=== PATIENT | male | born 1935 | race Two or more races ===

== ENCOUNTER 2017-11-24 15:20 | Inpatient (IN) | payer MEDICARE, MEDICAID ==
[~2017-11-24] VITALS: Ht 175.3 cm; Wt 82.6 kg
[~2017-11-24 15:20] MED LIST: AMLO5TAB4 PO; ATOR10TA PO; BUPR100T4 PO; CARV6.252 PO; DONE10TA44 PO; DONE5TAB7 PO; DULO20CA PO; HYDR12.5 PO; LAMO25TA5 PO; PANT40TA2 PO; PRAV20TA PO; RIVA10TA PO; SPIR25TA PO; TAMS-12 PO; TRAM50TA2 PO; TRAZ-214 PO
[2017-11-24] MEDS ORDERED: PANT40TA4 PO (16:12)
[2017-11-24] MEDS ORDERED: MELA3TAB PO (16:12)
[2017-11-24] MEDS ORDERED: SENN-167 PO (16:12)
[2017-11-24] MEDS ORDERED: HYDR-548 PO (16:12)
[2017-11-24] MEDS ORDERED: RIVA10TA PO (16:12)
[2017-11-24] MEDS ORDERED: DIGO125T PO (16:12)
[2017-11-24] MEDS ORDERED: PRED10TA PO (16:12)
[2017-11-24] MEDS ORDERED: ACET-868 PO (16:12)
[2017-11-24] MEDS ORDERED: METO25TA3 PO (16:12)
[2017-11-24] MEDS ORDERED: LISI2.5T2 PO (16:12)
[2017-11-24] MEDS ORDERED: FURO-145 PO (16:12)
[2017-11-24] MEDS ORDERED: MORP15TA PO (16:12)
[2017-11-24 16:13] LABS: BASOPHILS % (AUTO) 0.2 % (0.0-2.0); EOSINOPHILS % (AUTO) 0.3 % (0.0-6.0); HEMATOCRIT 29 % (39-51); HEMOGLOBIN 9.8 g/dL (13.5-17.5); LYMPHOCYTES # (AUTO) 0.4 /CMM (0.8-4.8); LYMPHOCYTES % (AUTO) 6.7 % (20.0-44.0); MEAN CORPUSCULAR HGB CONC 33 g/dl (31.0-36.0); MEAN CORPUSCULAR VOLUME 80 fL (80-96); MONOCYTES # (AUTO) 0.5 /CMM (0.1-1.30); MONOCYTES % (AUTO) 7.4 % (2.0-12.0); NEUTROPHILS # (AUTO) 5.5 /CMM (1.8-8.9); NEUTROPHILS % (AUTO) 85.4 % (43.0-81.0); PLATELET COUNT (AUTO) 183 /CMM (150-450); RDW COEFFICIENT OF VARIATION 17.9 (11.5-15.0); RED BLOOD CELL COUNT(AUTO) 3.65 MIL/uL (4.5-6.0); WHITE BLOOD COUNT (AUTO) 6.4 K/uL (4.3-11.0)
[2017-11-24 16:26] LABS: INR 1.06 (0.85-1.15)
[2017-11-24 16:31] LABS: TROPONIN I 0.022 ng/mL (0.00-0.056)
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
[2017-11-24 16:46] LABS: ALANINE AMINOTRANSFERASE 17 U/L (12-78); ALBUMIN 2.9 g/dL (3.4-5.0); ALKALINE PHOSPHATASE 62 U/L (46-116); ASPARTATE AMINOTRANSFERASE 17 U/L (15-37); B-TYPE NATRIURETIC PEPTIDE 3062 PG/ML (0-125); BILIRUBIN,DIRECT 0.2 mg/dL (0.0-0.2); BILIRUBIN,TOTAL 0.7 mg/dL (0.2-1.0); CALCIUM, SERUM 8.9 mg/dL (8.5-10.1); CARBON DIOXIDE 27 mmol/L (21-32); CHLORIDE 103 mmol/L (98-107); CREATININE 1.1 mg/dL (0.6-1.3); GLUCOSE 115 mg/dL (74-106); POTASSIUM 4.9 mmol/L (3.5-5.1); SODIUM SERUM 136 mmol/L (136-145); TOTAL PROTEIN, SERUM 7.1 g/dL (6.4-8.2); UREA NITROGEN, BLOOD 32 mg/dL (7-18)
--- NOTE | 2017-11-24 17:16 | NUR ---
CHARLOTTE WAS PAGED FOR EVAL
[2017-11-24] MEDS ORDERED: ACETAMINOPHEN 325 MG TABLET PO PRN ×2 (18:30→20:30)
--- NOTE | 2017-11-24 19:40 | NUR ---
INFORMED DR. WHITE AND PSYCH EVAL UNABLE TO COLLECTED UA AT THIS TIME. PER OKAY NOT TO COLLECTED AT THIS TIME.
--- NOTE | 2017-11-24 19:45 | NUR ---
REPORT GIVEN TO NEVIN PENG FOR [facility] 216-1,
--- NOTE | 2017-11-24 19:56 | NUR ---
PT TRANSFERRED VIA W/C TO [facility].
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
[2017-11-24] MEDS ORDERED: MAGNESIUM HYDROXIDE 30 ML UDC PO PRN (20:30)
[2017-11-24] MEDS ORDERED: ZOLPIDEM TARTRATE 5 MG TABLET PO PRN (20:30)
[2017-11-24] MEDS ORDERED: MAG HYDROX/AL HYDROX/SIMETH 30 ML UDC PO PRN (20:30)
[2017-11-24] MEDS ORDERED: Medication Not On Formulary EA (Melatonin 3 MG) PO SCH (22:00)
[2017-11-24] MEDS: ATORVASTATIN 10 MG TABLET PO SCH (22:09)
[2017-11-24] MEDS: SENNOSIDES 8.6 MG TABLET PO SCH (22:09)
[2017-11-24] MEDS: MORPHINE SULFATE IR 15 MG TABLET PO SCH (22:09)
[2017-11-24] MEDS: TAMSULOSIN 0.4 MG CAP.SR.24H PO SCH (22:09)
[2017-11-24 23:38] VITALS: BP 112/64
--- NOTE | 2017-11-25 06:33 | NUR ---
PAGED DR. ESPINOZA FOR LAB RESULTS. BLOOD CULTURE GRAM POSITIVE COCCI IN CHAINS SEEN ON GRAM STAIN. AWAITING FOR CALLBACK. WILL ENDORSE TO NEXT SHIFT NURSE FOR FOLLOW UP.
[2017-11-25 07:16] LABS: BASOPHILS % (AUTO) 0.7 % (0.0-2.0); EOSINOPHILS % (AUTO) 1.9 % (0.0-6.0); HEMATOCRIT 30 % (39-51); HEMOGLOBIN 9.8 g/dL (13.5-17.5); LYMPHOCYTES # (AUTO) 0.9 /CMM (0.8-4.8); LYMPHOCYTES % (AUTO) 14.7 % (20.0-44.0); MEAN CORPUSCULAR HGB CONC 33 g/dl (31.0-36.0); MEAN CORPUSCULAR VOLUME 84 fL (80-96); MONOCYTES # (AUTO) 0.8 /CMM (0.1-1.30); MONOCYTES % (AUTO) 12.7 % (2.0-12.0); NEUTROPHILS # (AUTO) 4.3 /CMM (1.8-8.9); PLATELET COUNT (AUTO) 185 /CMM (150-450); RDW COEFFICIENT OF VARIATION 19.2 (11.5-15.0); RED BLOOD CELL COUNT(AUTO) 3.58 MIL/uL (4.5-6.0); WHITE BLOOD COUNT (AUTO) 6.1 K/uL (4.3-11.0)
[2017-11-25 07:41] LABS: ALANINE AMINOTRANSFERASE 18 U/L (12-78); ALBUMIN 2.7 g/dL (3.4-5.0); ALKALINE PHOSPHATASE 54 U/L (46-116); ASPARTATE AMINOTRANSFERASE 18 U/L (15-37); BILIRUBIN,TOTAL 0.7 mg/dL (0.2-1.0); CALCIUM, SERUM 8.4 mg/dL (8.5-10.1); CARBON DIOXIDE 25 mmol/L (21-32); CHLORIDE 106 mmol/L (98-107); CREATININE 1.1 mg/dL (0.6-1.3); GLUCOSE 97 mg/dL (74-106); POTASSIUM 3.7 mmol/L (3.5-5.1); SODIUM SERUM 141 mmol/L (136-145); TOTAL PROTEIN, SERUM 6.7 g/dL (6.4-8.2); UREA NITROGEN, BLOOD 28 mg/dL (7-18)
[2017-11-25 07:56] LABS: CHOLESTEROL 133 mg/dL (<200); HDL CHOLESTEROL 48 mg/dL (40-60); LDL 76 mg/dL (0-99); TRIGLYCERIDES 64 mg/dL (30-150)
[2017-11-25 08:00] VITALS: BP 103/52
--- NOTE | 2017-11-25 08:19 | NUR ---
MS RN NOTES: BLOOD CX F/U DR. COX MADE AWARE OF BLOOD CX RESULTS BY CHARGE NURSE. PER MD "I WILL TAKE A LOOK AT IT". NO NEW ORDERS GIVEN AT THIS TIME. VITALS STABLE. PT DENIES ANY FEVER OR CHILLS. WILL CONTINUE TO MONITOR
[2017-11-25] MEDS: PANTOPRAZOLE 40 MG TABLET.DR PO SCH (08:28)
[2017-11-25] MEDS: predniSONE 10 MG TABLET PO SCH (08:28)
[2017-11-25] MEDS: METOPROLOL SUCCINATE 25 MG TAB.SR.24H PO SCH (08:29)
[2017-11-25] MEDS: FUROSEMIDE 20 MG TABLET PO SCH ×2 (08:29→15:49)
[2017-11-25] MEDS: LISINOPRIL (5MG) 5 MG TABLET PO SCH (08:29)
[2017-11-25] MEDS: MORPHINE SULFATE IR 15 MG TABLET PO SCH ×2 (08:55→21:09)
[2017-11-25] MEDS ORDERED: DIGOXIN 0.125 MG TABLET PO SCH (09:00)
[2017-11-25] MEDS: DIGOXIN 0.125 MG TABLET PO SCH (12:33)
[2017-11-25] MEDS: LamoTRIgine 25 MG TABLET PO SCH ×2 (13:55→21:08)
[2017-11-25 16:11] VITALS: BP 90/51
[2017-11-25] MEDS: QUETIAPINE FUMARATE 25 MG TABLET PO SCH ×2 (16:14→21:12)
[2017-11-25] MEDS: RIVAROXABAN 10 MG TABLET PO SCH (16:15)
[2017-11-25 19:59] VITALS: BP 122/74
[2017-11-25] MEDS: TAMSULOSIN 0.4 MG CAP.SR.24H PO SCH (21:09)
[2017-11-25] MEDS: ATORVASTATIN 10 MG TABLET PO SCH (21:09)
[2017-11-25] MEDS: SENNOSIDES 8.6 MG TABLET PO SCH (21:09)
[2017-11-26 08:00] VITALS: BP 134/73
[2017-11-26] MEDS: FUROSEMIDE 20 MG TABLET PO SCH ×2 (08:23→17:25)
[2017-11-26] MEDS: DULOXETINE HCL 30 MG CAPSULE.DR PO SCH (08:23)
[2017-11-26] MEDS: PANTOPRAZOLE 40 MG TABLET.DR PO SCH (08:23)
[2017-11-26] MEDS: METOPROLOL SUCCINATE 25 MG TAB.SR.24H PO SCH (08:24)
[2017-11-26] MEDS: LORAZEPAM 0.5 MG TABLET PO PRN ×2 (08:25→17:25)
[2017-11-26] MEDS: MORPHINE SULFATE IR 15 MG TABLET PO SCH ×2 (08:25→21:53)
--- NOTE | 2017-11-26 08:25 | NUR ---
RN NOTES PATIENT ANXIOUS, PARANOID, IRRITABLE, HARD TO FOLLOW DIRECTION, ADMINISTERED ATIVAN 1 MG PO PRN PRESCRIBED, V/S TAKEN BP -134/73, P-76, CONTINUED MONITORING.
[2017-11-26] MEDS: LISINOPRIL (5MG) 5 MG TABLET PO SCH (08:26)
[2017-11-26] MEDS: QUETIAPINE FUMARATE 25 MG TABLET PO SCH ×3 (08:26→21:37)
[2017-11-26] MEDS: LamoTRIgine 25 MG TABLET PO SCH ×2 (08:26→21:37)
[2017-11-26] MEDS: predniSONE 10 MG TABLET PO SCH (08:26)
[2017-11-26] MEDS: DIGOXIN 0.125 MG TABLET PO SCH (14:35)
[2017-11-26] MEDS: HYDROCODONE/APAP 10/325MG 1 EA TABLET PO PRN ×2 (14:40→19:00)
--- NOTE | 2017-11-26 14:40 | NUR ---
RN NOTES ADMINISTERED NARCO 10/325 MG PO PRN FOR GENERALIZED PAIN 01/25 PER PATIENT REQUEST, V/S TAKEN BP- 130/68, P-75, ENCOURAGED TO INCREASE FLUID INTAKE. CONTINUED MONITORING.
[2017-11-26 16:00] VITALS: BP 94/59
[2017-11-26] MEDS: RIVAROXABAN 10 MG TABLET PO SCH (17:28)
--- NOTE | 2017-11-26 18:00 | NUR ---
RN NOT NOTIFIED DR COX ABOUT PATIENT BLOOD CULTURE CAME GRAM POSITIVE COCCI IN CHAIN ONE BOTTLE. PATIENT V/S STABLE NO FEVER T-97.9. GET ORDER JUST MONITOR. ORDER TAKEN AND CARRIED OUT.
--- NOTE | 2017-11-26 19:00 | NUR ---
RN NOTES ADMINISTERED NARCO 10/325 MG PO PRN FOR CHRONIC GENERALIZED PAIN 01/25 , PER PATIENT REQUEST, V/S TAKEN ET=119/60, P-66, ENCOURAGED TO INCREASE FLUID INTAKE. CONTINUED MONITORING.
[2017-11-26 19:42] VITALS: BP 82/52
--- NOTE | 2017-11-26 20:30 | NUR ---
GPS-RN PATIENT NOTED BP ON THE LOW SIDE 84/53, RECHECKED 87/52. PATIENT IS ALERT, AWAKE AND ORIENTED. CALLED BLENDING MACHINE FEEDER OLGA NOTIFIED FINDING ASSESSMENT AND MADE AWARE OF BUN 28. MD ORDERED IVF NS 0.9% 1L BOLUS X1 ONLY ORDER NOTED AND CARRIED OUT.
[2017-11-26] MEDS ORDERED: IV NS 0.9% 1,000 ML BAG IV ONE (21:00)
[2017-11-26] MEDS: SENNOSIDES 8.6 MG TABLET PO SCH (21:37)
[2017-11-26] MEDS: TAMSULOSIN 0.4 MG CAP.SR.24H PO SCH (21:37)
[2017-11-26] MEDS: ATORVASTATIN 10 MG TABLET PO SCH (21:37)
[2017-11-27 08:00] VITALS: BP 100/63
[2017-11-27] MEDS: MORPHINE SULFATE IR 15 MG TABLET PO SCH ×2 (08:54→21:42)
[2017-11-27] MEDS: PANTOPRAZOLE 40 MG TABLET.DR PO SCH (08:54)
[2017-11-27] MEDS: QUETIAPINE FUMARATE 25 MG TABLET PO SCH ×3 (08:54→21:41)
[2017-11-27] MEDS: LamoTRIgine 25 MG TABLET PO SCH ×2 (08:54→21:41)
[2017-11-27] MEDS: FUROSEMIDE 20 MG TABLET PO SCH ×2 (08:54→16:22)
[2017-11-27] MEDS: predniSONE 10 MG TABLET PO SCH (08:54)
[2017-11-27] MEDS: DULOXETINE HCL 30 MG CAPSULE.DR PO SCH (08:55)
[2017-11-27] MEDS: LISINOPRIL (5MG) 5 MG TABLET PO SCH (08:55)
[2017-11-27] MEDS: METOPROLOL SUCCINATE 25 MG TAB.SR.24H PO SCH (08:55)
[2017-11-27] MEDS: DIGOXIN 0.125 MG TABLET PO SCH (12:11)
[2017-11-27 16:00] VITALS: BP 92/56
--- NOTE | 2017-11-27 16:15 | NUR ---
Initial Discharge Plan: Pt currently resides at [address] [place] [id number]; ([phone]). Per pt, he would like to attend a prison facility. SW will work with the pt and the MD regarding appropriate discharge plans. SW will form a safe and proper discharge.
[2017-11-27] MEDS: RIVAROXABAN 10 MG TABLET PO SCH (16:43)
[2017-11-27 19:15] VITALS: BP 87/55
--- NOTE | 2017-11-27 19:15 | NUR ---
GPS NOTE. VS CHECKED 87/55 L ARM. PT. IS ASYMPTOMATIC. CHICLE GRINDER FEEDER DR. JARRETT
--- NOTE | 2017-11-27 19:37 | NUR ---
GPS NOTE. ON PROVIDER AWARE OF THE PT'S CONDITION. NO NEW ORDERS AT TIME. WILL CONTINUE TO MONITOR FOR SAFETY.
[2017-11-27 19:43] VITALS: BP 104/62
--- NOTE | 2017-11-27 19:59 | NUR ---
PT. BED PLACED ON THE [place] POSITION WITH THE PATIENT'S FEET HIGHER BY 15 DEGREES. PT. INSTRUCTED TO DRINK PLENTY IF FLUID. NO SIGNS OF DISTRESS NOTED AT THIS TIME. WILL CONTINUE TO MONITOR FOR SAFETY.
[2017-11-27 20:36] VITALS: BP 104/61
[2017-11-27] MEDS: TAMSULOSIN 0.4 MG CAP.SR.24H PO SCH (21:41)
[2017-11-27] MEDS: SENNOSIDES 8.6 MG TABLET PO SCH (21:41)
[2017-11-27] MEDS: ATORVASTATIN 10 MG TABLET PO SCH (21:41)
--- NOTE | 2017-11-27 22:08 | NUR ---
GPS NOTE. PER DR. SHAHID DO NOT CHECK THE PATIENT'S VS UNTIL TOMORROW MORNING. PT. CURRENTLY LAYING IN BED RESTING COMFORTABLY. NO SIGNS OF DISTRESS NOTED. WILL CONTINUE TO MONITOR FOR SAFETY.
[2017-11-28 08:00] VITALS: BP 110/59
[2017-11-28] MEDS: FUROSEMIDE 20 MG TABLET PO SCH ×2 (09:04→16:40)
[2017-11-28] MEDS: LISINOPRIL (5MG) 5 MG TABLET PO SCH (09:04)
[2017-11-28] MEDS: MORPHINE SULFATE IR 15 MG TABLET PO SCH (09:04)
[2017-11-28] MEDS: predniSONE 10 MG TABLET PO SCH (09:04)
[2017-11-28] MEDS: QUETIAPINE FUMARATE 25 MG TABLET PO SCH (09:04)
[2017-11-28] MEDS: PANTOPRAZOLE 40 MG TABLET.DR PO SCH (09:04)
[2017-11-28] MEDS: LamoTRIgine 25 MG TABLET PO SCH (09:04)
[2017-11-28] MEDS: METOPROLOL SUCCINATE 25 MG TAB.SR.24H PO SCH (09:05)
[2017-11-28] MEDS: DULOXETINE HCL 30 MG CAPSULE.DR PO SCH (09:05)
[2017-11-28] MEDS: DIGOXIN 0.125 MG TABLET PO SCH (12:34)
[2017-11-28 16:00] VITALS: BP 99/63
[2017-11-28] MEDS: RIVAROXABAN 10 MG TABLET PO SCH (16:40)
[2017-11-28] MEDS ORDERED: QUET25TA PO (19:23)
[2017-11-28] MEDS ORDERED: LAMO25TA5 PO (19:23)
--- NOTE | 2017-11-28 19:23 | NUR ---
RN NOTE: RECEIVED CALL FROM MARQUEZ TO TRANSFER PATIENT TO TELEMETRY FOR EVALUATION. CHARGE NURSE ENDORSED OF TRANSFER BEFORE LEAVING SHIFT.
--- NOTE | 2017-11-28 20:00 | NUR ---
GPS-RN PER ALMA TO INFORM TRANSPORT PILOT NATALIE REGARDING THIS PATIENT FOR CONTINUITY OF CARE. CALLED TRANSPORT PILOT NATALIE, STATED HE WILL ASSESS THE PATIENT IN TOM. ENDORSED.
--- NOTE | 2017-11-28 20:00 | NUR ---
GPS-RN RECEIVED A CALL FROM GUSTAVO MARQUEZ WITH ORDER OF URINE CULTURE NOTED AND CARRIED OUT.
[2017-11-28 20:23] LABS: BASOPHILS % (AUTO) 0.3 % (0.0-2.0); EOSINOPHILS % (AUTO) 0.3 % (0.0-6.0); HEMATOCRIT 33 % (39-51); HEMOGLOBIN 10.7 g/dL (13.5-17.5); LYMPHOCYTES # (AUTO) 0.7 /CMM (0.8-4.8); LYMPHOCYTES % (AUTO) 8.3 % (20.0-44.0); MEAN CORPUSCULAR HGB CONC 32 g/dl (31.0-36.0); MEAN CORPUSCULAR VOLUME 84 fL (80-96); MONOCYTES # (AUTO) 0.6 /CMM (0.1-1.30); NEUTROPHILS # (AUTO) 6.8 /CMM (1.8-8.9); NEUTROPHILS % (AUTO) 84.1 % (43.0-81.0); PLATELET COUNT (AUTO) 208 /CMM (150-450); RDW COEFFICIENT OF VARIATION 18.6 (11.5-15.0); RED BLOOD CELL COUNT(AUTO) 3.94 MIL/uL (4.5-6.0); WHITE BLOOD COUNT (AUTO) 8.1 K/uL (4.3-11.0)
[2017-11-28 20:24] LABS: CALCIUM, SERUM 8.8 mg/dL (8.5-10.1); CARBON DIOXIDE 25 mmol/L (21-32); CHLORIDE 102 mmol/L (98-107); CREATININE 1.4 mg/dL (0.6-1.3); GLUCOSE 110 mg/dL (74-106); POTASSIUM 4.3 mmol/L (3.5-5.1); SODIUM SERUM 136 mmol/L (136-145); UREA NITROGEN, BLOOD 35 mg/dL (7-18)
[2017-11-28 20:25] VITALS: BP 103/63
--- NOTE | 2017-11-28 21:16 | NUR ---
GPS-RN REPORT GIVEN TO FARIHA ROONEY AT BEDSIDE. ENDORSED 14 DAY HOLD CERTIFICATE ORIGINAL TO CHARGE NURSE PAT AND PRIMARY NURSE. PATIENT IS AWAKE, ALERT AND ORIENTED X3, NO ACUTE DISTRESS NOTED. VSS. INFORMED FARIHA TO CALL JALOUSIE INSTALLER ZEHRA PER GUSTAVO SHAHID INSTRUCTION. ENDORSED FOR CONTINUITY OF CARE.
[2017-11-28] MEDS ORDERED: QUETIAPINE FUMARATE 25 MG TABLET PO SCH (22:00)
[2017-11-29] MEDS ORDERED: AMPICILLIN SODIUM 2 GM in IV NS 0.9% 100 ML IV SCH ×2
[2017-11-29] MEDS ORDERED: AMPI2VIA14 IV (07:50)
[2017-11-29] MEDS ORDERED: LORA1TAB PO (07:50)
[2017-11-29] MEDS ORDERED: MAG30ORA PO (07:50)
[2017-11-29] MEDS ORDERED: QUET25TA PO ×2 (07:50→07:52)
[2017-11-29] MEDS ORDERED: MAGN400O6 PO (07:50)
[2017-11-29] MEDS ORDERED: LAMO25TA PO (07:50)
== END 2017-11-28 21:21 | disposition short-term general hospital (02) | DRG 885 ==
LOC: ER 15:25 → GPS 19:56
PROVIDERS: ADMIT Psychiatry & Neurology Psychiatry; ATTEND Internal Medicine
DX: F31.64 Bipolar disorder, current episode mixed, severe, with psychotic features (principal); I11.0 Hypertensive heart disease with heart failure; N17.0 Acute kidney failure with tubular necrosis; B95.2 Enterococcus as the cause of diseases classified elsewhere; F23 Brief psychotic disorder; E44.0 Moderate protein-calorie malnutrition; R78.81 Bacteremia; K21.9 Gastro-esophageal reflux disease without esophagitis; I48.91 Unspecified atrial fibrillation; I25.10 Atherosclerotic heart disease of native coronary artery without angina pectoris; I50.9 Heart failure, unspecified; E78.5 Hyperlipidemia, unspecified; N40.0 Benign prostatic hyperplasia without lower urinary tract symptoms; F41.9 Anxiety disorder, unspecified; F03.90 Unspecified dementia, unspecified severity, without behavioral disturbance, psychotic disturbance, mood disturbance, and anxiety; Z95.1 Presence of aortocoronary bypass graft; Z68.26 Body mass index [BMI] 26.0-26.9, adult
CPT/HCPCS: 36415; 71045-TC; 80048-TC; 80053-TC; 80061-TC; 80076-TC; 83605-TC; 83880; 84484-TC; 85025-TC; 85730-TC; 87040-TC; 87081-TC; 87086-TC; 87186-TC; A4606; J0290; J7030; Z7610

== ENCOUNTER 2017-11-28 21:37 | Inpatient (IN) | payer MEDICARE, MEDICAID ==
[~2017-11-28] VITALS: Ht 175.2 cm; Wt 79.8 kg
[2017-11-28 20:00] VITALS: BP 110/63
[2017-11-28 21:10] VITALS: BP 110/63
--- NOTE | 2017-11-28 21:10 | NUR ---
MANAGER INTERNATIONAL NOTES RECEIVED PT FROM GPS. PT TRANSFERRED BECAUSE BLOOD CULTURE SHOWED POSITIVE FOR ENTERIC COCCI AMPICIN SENSITIVITY. Dx SEPSIS 7 BACTEREMIA. PT A&O X2-3. TELE READING AFIB HR 73 CONTROLLED. SKIN INTACT. IV INSERTED IN PTS R FA#20 WITH 0.9@ 75. 1:1 SITTER AT BEDSIDE. BED IN LOW LOCKED POSITION, CALL LIGHT IN REACH. ALL SAFETY PRECAUTIONS TAKEN. ALL ADMISSIONS ORDERS COMPLETED. WILL CONT TO MONITOR.
[~2017-11-28 21:37] MED LIST changes: +ACET-868 PO; -AMLO5TAB4 PO; -BUPR100T4 PO; -CARV6.252 PO; +DIGO125T PO; -DONE10TA44 PO; -DONE5TAB7 PO; +FURO-145 PO; +HYDR-548 PO; -HYDR12.5 PO; +LISI2.5T2 PO; +MELA3TAB PO; +METO25TA3 PO; +MORP15TA PO; -PANT40TA2 PO; +PANT40TA4 PO; -PRAV20TA PO; +PRED10TA PO; +QUET25TA PO; +SENN-167 PO; -SPIR25TA PO; -TRAM50TA2 PO; -TRAZ-214 PO
[2017-11-28] MEDS ORDERED: MAGNESIUM HYDROXIDE 30 ML UDC PO PRN (22:30)
[2017-11-28] MEDS ORDERED: HYDROCODONE/APAP 5/325MG 1 EACH TABLET PO PRN (22:30)
[2017-11-28] MEDS ORDERED: ACETAMINOPHEN 325 MG TABLET PO PRN (22:30)
[2017-11-28] MEDS ORDERED: HYDROCODONE/APAP 10/325MG 1 EA TABLET PO PRN (22:30)
[2017-11-28] MEDS ORDERED: IV NS 0.9% 500 ML IV ONE (22:30)
[2017-11-28] MEDS ORDERED: TEMAZEPAM 15 MG CAPSULE PO PRN (22:30)
[2017-11-28] MEDS ORDERED: ONDANSETRON HCL/PF 4 MG/2 ML VIAL IVP PRN (22:30)
[2017-11-28] MEDS ORDERED: MAG HYDROX/AL HYDROX/SIMETH 30 ML UDC PO PRN (22:30)
[2017-11-28] MEDS: IV NS 0.9% 1,000 ML IV PRN (23:44)
[2017-11-29] VITALS: BP 129/74
[2017-11-29] MEDS: METOPROLOL SUCCINATE 25 MG TAB.SR.24H PO SCH (00:24)
[2017-11-29 03:30] LABS: APPEARANCE,URINE CLEAR (CLEAR); BILIRUBIN,URINE NEGATIVE (NEGATIVE); BLOOD, URINE NEGATIVE Ery/uL (NEGATIVE); COLOR,URINE YELLOW (YELLOW); KETONES,URINE NEGATIVE (NEGATIVE); LEUKOCYTE ESTERASE ,URINE TRACE (NEGATIVE); NITRITE, URINE NEGATIVE (NEGATIVE); PH,URINE 6.5 (5.0-8.0); PROTEIN,URINE NEGATIVE (NEGATIVE); UGLUCOSE NEGATIVE (NEGATIVE); UROBILINOGEN,URINE 0.2 EU/dL (0.2)
[2017-11-29 03:39] LABS: BACTERIA,URINE Rare /HPF (None Seen); RBC,URINE 0-2 /HPF (0-2); SQUAMOUS EPITHELIAL CELL,UR Rare /HPF (None Seen); WBC,URINE 0-2 /HPF (0-3)
[2017-11-29 04:00] VITALS: BP 120/72
[2017-11-29] MEDS ORDERED: AMPICILLIN 1 GM VIAL ONE (04:40)
[2017-11-29] MEDS ORDERED: AMPICILLIN 1 GM in IV NS 0.9% 50 ML IV SCH (05:00)
--- NOTE | 2017-11-29 06:33 | NUR ---
RN CLOSING NOTES NO ACUTE CHANGES NOTED DURING THIS SHIFT. SITTER AT BED SIDE. WILL REPORT TO AM NURSE FOR ALFRED.
[2017-11-29 06:48] LABS: CALCIUM, SERUM 8.5 mg/dL (8.5-10.1); CARBON DIOXIDE 25 mmol/L (21-32); CHLORIDE 105 mmol/L (98-107); CREATININE 1.2 mg/dL (0.6-1.3); GLUCOSE 85 mg/dL (74-106); MAGNESIUM 1.7 mg/dL (1.8-2.4); PHOSPHORUS 3.8 mg/dL (2.5-4.9); POTASSIUM 3.9 mmol/L (3.5-5.1); SODIUM SERUM 140 mmol/L (136-145); UREA NITROGEN, BLOOD 35 mg/dL (7-18)
[2017-11-29 07:11] LABS: BASOPHILS # (AUTO) 0.1 /CMM (0.0-0.2); BASOPHILS % (AUTO) 0.7 % (0.0-2.0); EOSINOPHILS % (AUTO) 1.6 % (0.0-6.0); HEMATOCRIT 30 % (39-51); HEMOGLOBIN 9.8 g/dL (13.5-17.5); LYMPHOCYTES # (AUTO) 1.2 /CMM (0.8-4.8); LYMPHOCYTES % (AUTO) 15.8 % (20.0-44.0); MEAN CORPUSCULAR HGB CONC 33 g/dl (31.0-36.0); MEAN CORPUSCULAR VOLUME 84 fL (80-96); MONOCYTES # (AUTO) 0.8 /CMM (0.1-1.30); MONOCYTES % (AUTO) 11.3 % (2.0-12.0); NEUTROPHILS # (AUTO) 5.2 /CMM (1.8-8.9); NEUTROPHILS % (AUTO) 70.6 % (43.0-81.0); PLATELET COUNT (AUTO) 192 /CMM (150-450); RDW COEFFICIENT OF VARIATION 18.4 (11.5-15.0); WHITE BLOOD COUNT (AUTO) 7.4 K/uL (4.3-11.0)
--- NOTE | 2017-11-29 07:30 | NUR ---
TOM RN NOTE RECEIVED PATIENT IN BED ,ALL NEEDS ATTENDED ON TELE MONITOR AFIB HR 120 ON 3L NC , NO SOB NOTED AT THIS TIME, ON HEPARIN DRIP ORDERED, PTT 170 CHARGE NURSE FROM SKULL SPLITTER CALLED TO [id number] AND TROY JENSEN RN AUTOMATION CONTROLS SPECIALIST CALLED BACK . STATED NOT ASSIGNED TO THIS PATIENT, WILL CALL BACK THAT Addendum: 11/29/17 at 4732 by SEVERIANO TOMAS RN WRONG CHART
[2017-11-29] MEDS ORDERED: MAG30ORA PO (07:50)
[2017-11-29] MEDS ORDERED: LAMO25TA PO (07:50)
[2017-11-29] MEDS ORDERED: LORA1TAB PO (07:50)
[2017-11-29] MEDS ORDERED: MAGN400O6 PO (07:50)
[2017-11-29] MEDS ORDERED: QUET25TA PO ×2 (07:50→07:52)
[2017-11-29] MEDS ORDERED: AMPI2VIA14 IV (07:50)
--- NOTE | 2017-11-29 07:57 | NUR ---
TOM RN NOTE PATIENT ALERT ORIENTED ON 5250 ORDERED , WITH SITTER AT BESIDE, ON TELE MONITOR AFIB 76 RT FA HL INTACT ON IVF ORDERED BED LOWEST AND LOCKED POSITION , CALL LIGHT WITHIN REACH PLAN OF CARE DISCUSSED WITH PATIENT ,ON RA , NO SOB NOTED , WILL CONT TO MONITOR CLOSELY
[2017-11-29] MEDS: LamoTRIgine 25 MG TABLET PO SCH ×2 (08:34→21:48)
[2017-11-29 08:42] VITALS: BP 122/73
[2017-11-29] MEDS ORDERED: DIGOXIN 0.125 MG TABLET PO SCH ×2 (09:00→13:00)
--- NOTE | 2017-11-29 09:38 | NUR ---
WATER TRAINER NOTE SPOKE WIT DR ZABALA ABOUT NEPHRO CONSULT ,STATED WILL SEE PATIENT SOON
[2017-11-29] MEDS ORDERED: MAGNESIUM OXIDE 400 MG TABLET PO ONE (10:00)
--- NOTE | 2017-11-29 11:55 | NUR ---
TOM RN NOTE NEW HL ON LT FA CHIN 22 INSERTED WITH GOOD BLOOD RETURN
[2017-11-29 12:00] VITALS: BP 141/85
[2017-11-29] MEDS: AMPICILLIN 2 GM in IV NS 0.9% 100 ML IV SCH ×2 (12:09→17:17)
--- NOTE | 2017-11-29 13:12 | NUR ---
TOM RN NOTE SPOKE WITH SARAH MOFFETT NOTIFY THAT PATIENT REFUSED TO HAVE BREAKFAST AND LUNCH ORDERED ENSURE BID , ORDER CARRIED OUT
--- NOTE | 2017-11-29 14:12 | NUR ---
TOM RN NOTE UA COLLECTED ORDERED ,KEEP CLEAN DRY
[2017-11-29 14:46] LABS: CREATININE, URINE 21.6 MG/DL (30.0-125.0)
[2017-11-29 14:51] LABS: APPEARANCE,URINE SL CLOUDY (CLEAR); BILIRUBIN,URINE NEGATIVE (NEGATIVE); BLOOD, URINE NEGATIVE Ery/uL (NEGATIVE); COLOR,URINE YELLOW (YELLOW); KETONES,URINE NEGATIVE (NEGATIVE); LEUKOCYTE ESTERASE ,URINE 1+ (NEGATIVE); NITRITE, URINE NEGATIVE (NEGATIVE); PROTEIN,URINE NEGATIVE (NEGATIVE); UGLUCOSE NEGATIVE (NEGATIVE); UROBILINOGEN,URINE 0.2 EU/dL (0.2)
--- NOTE | 2017-11-29 15:16 | NUR ---
TOM ROONEY NOTE ECHO AND US OF KIDNEY DONE ORDERED Addendum: 11/29/17 at 1546 by SEVERIANO TOMAS RN SPOKE WITH SARAH MOFFETT RN [employer] CON[employer]ATION LABORER NOTIFIED CHECK MED RECON
[2017-11-29 15:47] LABS: EOSINOPHIL,URINE None Seen
[2017-11-29 16:02] LABS: RBC,URINE 0-2 /HPF (0-2)
[2017-11-29 16:03] LABS: BACTERIA,URINE None seen /HPF (None Seen); SQUAMOUS EPITHELIAL CELL,UR Rare /HPF (None Seen)
[2017-11-29] MEDS: RIVAROXABAN 10 MG TABLET PO SCH (16:17)
[2017-11-29] MEDS ORDERED: ENSURE ENLIVE 237 ML LIQUID (VANILLA) PO SCH (17:00)
[2017-11-29] MEDS: IV NS 0.9% 1,000 ML IV PRN (18:45)
--- NOTE | 2017-11-29 19:30 | NUR ---
TOM RN NOTE ALL NEEDS ATTENDED, NOT IN ACUTE DISTRESS, SITTER AT BEDSIDE
[2017-11-29 20:00] VITALS: BP 115/68
--- NOTE | 2017-11-29 20:00 | NUR ---
RN TOM INITIAL NOTE RECEIVED PT ON 14 DAY HOLD FROM GPS NOW ON 5250 ON 12/11 AOX2-3, ON R/A WELL RUFINO, C/O GENERALIZED PAIN, WITH ROUTINE MORPHINE TO BE GIVEN SCHEDULED. ON 1:1 SITTER, SAFETY MEASURES UNDER TAKEN, PT COMPLIANT AT THIS TIME WITH ALL CARE. WILL CONT TO MONITOR.
[2017-11-29] MEDS: TAMSULOSIN 0.4 MG CAP.SR.24H PO SCH (21:47)
[2017-11-29] MEDS: QUETIAPINE FUMARATE 100 MG TABLET PO SCH (21:48)
[2017-11-29] MEDS: SENNOSIDES 8.6 MG TABLET PO SCH (21:48)
[2017-11-29] MEDS: MORPHINE SULFATE IR 15 MG TABLET PO SCH (21:48)
[2017-11-29] MEDS: ATORVASTATIN 10 MG TABLET PO SCH (21:48)
[2017-11-29] MEDS ORDERED: Medication Not On Formulary EA (Melatonin 3 MG) PO SCH (22:00)
[2017-11-30] VITALS: BP 125/70
[2017-11-30] MEDS: AMPICILLIN 2 GM in IV NS 0.9% 100 ML IV SCH ×5 (00:36→23:34)
[2017-11-30] MEDS: METOPROLOL SUCCINATE 25 MG TAB.SR.24H PO SCH ×2 (00:36→23:42)
[2017-11-30 04:00] VITALS: BP 113/65
--- NOTE | 2017-11-30 06:40 | NUR ---
RN TOM CLOSING NOTE ENDORSED PT ON 14 DAY HOLD FROM GPS NOW ON 5250 ON 12/11 AOX2-3, ON R/A WELL RUFINO, ALL NEEDS ATTENDED. ON 1:1 SITTER, SAFETY MEASURES UNDER TAKEN, PT COMPLIANT AT THIS TIME WITH ALL CARE. WILL CONT TO MONITOR.
[2017-11-30 06:45] LABS: BASOPHILS % (AUTO) 0.4 % (0.0-2.0); EOSINOPHILS % (AUTO) 2.5 % (0.0-6.0); HEMATOCRIT 30 % (39-51); HEMOGLOBIN 9.7 g/dL (13.5-17.5); LYMPHOCYTES # (AUTO) 1.1 /CMM (0.8-4.8); LYMPHOCYTES % (AUTO) 12.4 % (20.0-44.0); MEAN CORPUSCULAR HGB CONC 32 g/dl (31.0-36.0); MEAN CORPUSCULAR VOLUME 85 fL (80-96); NEUTROPHILS # (AUTO) 6.2 /CMM (1.8-8.9); NEUTROPHILS % (AUTO) 72.7 % (43.0-81.0); RDW COEFFICIENT OF VARIATION 18.8 (11.5-15.0); RED BLOOD CELL COUNT(AUTO) 3.58 MIL/uL (4.5-6.0); WHITE BLOOD COUNT (AUTO) 8.5 K/uL (4.3-11.0)
[2017-11-30 07:06] LABS: CALCIUM, SERUM 8.5 mg/dL (8.5-10.1); CARBON DIOXIDE 27 mmol/L (21-32); CHLORIDE 110 mmol/L (98-107); CREATININE 1.1 mg/dL (0.6-1.3); GLUCOSE 86 mg/dL (74-106); MAGNESIUM 1.9 mg/dL (1.8-2.4); PHOSPHORUS 3.2 mg/dL (2.5-4.9); POTASSIUM 4.1 mmol/L (3.5-5.1); SODIUM SERUM 145 mmol/L (136-145); UREA NITROGEN, BLOOD 23 mg/dL (7-18)
[2017-11-30 07:12] LABS: CREATINE KINASE, TOTAL 45 U/L (39-308)
--- NOTE | 2017-11-30 07:24 | NUR ---
praveena rn note patient in bed ,resting comfortably at this time , with sitter as ordered on 5250 ,on ivf as ordered , bed in lowest and locked position , on tele monitor afib , will cont to monitor closely
[2017-11-30 07:33] LABS: ALANINE AMINOTRANSFERASE 16 U/L (12-78); ALBUMIN 2.6 g/dL (3.4-5.0); ALKALINE PHOSPHATASE 50 U/L (46-116); ASPARTATE AMINOTRANSFERASE 19 U/L (15-37); BILIRUBIN,TOTAL 0.7 mg/dL (0.2-1.0); TOTAL PROTEIN, SERUM 6.6 g/dL (6.4-8.2)
[2017-11-30 08:00] VITALS: BP 132/76
[2017-11-30] MEDS: LISINOPRIL (5MG) 5 MG TABLET PO SCH (08:29)
[2017-11-30] MEDS: MORPHINE SULFATE IR 15 MG TABLET PO SCH ×2 (08:30→21:44)
[2017-11-30] MEDS: DULOXETINE HCL 30 MG CAPSULE.DR PO SCH (08:30)
[2017-11-30] MEDS: LamoTRIgine 25 MG TABLET PO SCH ×2 (08:30→21:43)
[2017-11-30] MEDS: predniSONE 10 MG TABLET PO SCH (08:30)
[2017-11-30] MEDS: PANTOPRAZOLE 40 MG TABLET.DR PO SCH (08:30)
[2017-11-30] MEDS: GLUCERNA SHAKE 237 ML CAN PO SCH ×2 (08:31→16:34)
[2017-11-30 08:33] LABS: PLATELET COUNT (AUTO) 182 /CMM (150-450)
[2017-11-30] MEDS: IV NS 0.9% 1,000 ML IV PRN (09:45)
--- NOTE | 2017-11-30 10:00 | NUR ---
TMO RN NOTE SEEN BY DR MCKEON WITH ORDER TO DO BLOOD CX Addendum: 11/30/17 at 1217 by SEVERIANO TOMAS RN DR MCKEON AT BEDSIDE NOTIFIED THAT PATIENT LOOK WEEK AND TIRED
--- NOTE | 2017-11-30 11:56 | NUR ---
TEXTED DR. GARCIA FOR MRI APPROVAL.
[2017-11-30 12:00] VITALS: BP 105/63
--- NOTE | 2017-11-30 12:17 | NUR ---
TOM ROONEY NOTE DR AMAYA BUTTER FAT TESTER AT BEDSIDE NOTIFIED THAT TODAY PATIENT LOOK MORE TIRED AND WEEK Addendum: 11/30/17 at 1232 by SEVERIANO TOMAS RN MRI CONSENT SIGNED BY PATIENT
[2017-11-30] MEDS: DIGOXIN 0.125 MG TABLET PO SCH (12:40)
--- NOTE | 2017-11-30 13:13 | NUR ---
TOM RN NOTE ABLE TO FEED SELF, LUNCH ATE 50% OF FOOD, STATED THAT FEEL A LITTLE BETTER PER DR AMAYA OK TO D\C HOLD ORDER, WILL F\U
--- NOTE | 2017-11-30 15:28 | NUR ---
TOM RN NOTE MRI SPINE DONE ORDERED, ALL NEEDS ATTENDED
--- NOTE | 2017-11-30 15:42 | NUR ---
TOM RN NOTE PER DR MONIQUE FOLEY TO D\C ON HOLD , ORDER CARRIED OUT
[2017-11-30 16:00] VITALS: BP 113/59
[2017-11-30] MEDS: RIVAROXABAN 10 MG TABLET PO SCH (16:32)
--- NOTE | 2017-11-30 18:45 | NUR ---
TOM RN NOTE PATINT TRANSFERRED TO ROOM 115 BED 2 , ALL NEEDS ATTENDED, WILL CONT TO MONITOR CLOSELY, CONT ON IVF ORDERED
[2017-11-30 20:00] VITALS: BP 107/58
--- NOTE | 2017-11-30 20:00 | NUR ---
RN TOM INITIAL NOTE RECEIVED PT HOLD DC AOX2-3, ON R/A WELL RUFINO, C/O GENERALIZED PAIN, WITH ROUTINE MORPHINE TO BE GIVEN SCHEDULED. ON 1:1 SITTER, SAFETY MEASURES UNDER TAKEN, ALL NEEDS MET.
[2017-11-30] MEDS: SENNOSIDES 8.6 MG TABLET PO SCH (21:42)
[2017-11-30] MEDS: TAMSULOSIN 0.4 MG CAP.SR.24H PO SCH (21:43)
[2017-11-30] MEDS: ATORVASTATIN 10 MG TABLET PO SCH (21:43)
[2017-11-30] MEDS: QUETIAPINE FUMARATE 100 MG TABLET PO SCH (21:44)
[2017-12-01] VITALS: BP 112/71
[2017-12-01 04:00] VITALS: BP 113/65
[2017-12-01] MEDS: AMPICILLIN 2 GM in IV NS 0.9% 100 ML IV SCH ×3 (05:20→17:39)
[2017-12-01] MEDS: IV NS 0.9% 1,000 ML IV PRN (05:25)
--- NOTE | 2017-12-01 06:33 | NUR ---
RN TOM CLOSING NOTES PT AOX3 FOLLOWS COMMAND, COMPLAINT WITH ALL TX AND MEDICATION ORDERS, ALL NEEDS ATTENDED, ASSISTED WITH ALL ADL'S, 1:1 SITTER IN FOR SAFETY, WILL CONT TO MONITOR.
--- NOTE | 2017-12-01 07:30 | NUR ---
TOM RN INITIAL NOTES RECEIVED PATIENT SLEEPING IN BED, EASY TO AROUSE, AOX2-3, NC OFF AT THIS TIME SATURATING AT 99% O2, ON TELE MONITORING CONTROLLED AFIB 65 HR, ABLE TO USE URINAL, IV LH 20G NS@ 75 ML/HR, CO OF CHRONIC ARTHRITIS PAIN, WILL GIVE SCHEDULED PAIN MEDICATION, BED IN LOW AND LOCKED POSITION CALL LIGHT WITHIN REACH, WILL CONTINUE TO MONITOR.
[2017-12-01 08:00] VITALS: BP_SYST 138; BP_SYST 140; BP_DIAS 68; BP_DIAS 79
[2017-12-01] MEDS: LISINOPRIL (5MG) 5 MG TABLET PO SCH (09:02)
[2017-12-01] MEDS: PANTOPRAZOLE 40 MG TABLET.DR PO SCH (09:02)
[2017-12-01] MEDS: LamoTRIgine 25 MG TABLET PO SCH ×2 (09:02→21:39)
[2017-12-01] MEDS: predniSONE 10 MG TABLET PO SCH (09:02)
[2017-12-01] MEDS: DULOXETINE HCL 30 MG CAPSULE.DR PO SCH (09:02)
[2017-12-01] MEDS: MORPHINE SULFATE IR 15 MG TABLET PO SCH ×2 (09:03→21:40)
[2017-12-01] MEDS: GLUCERNA SHAKE 237 ML CAN PO SCH ×2 (09:38→17:37)
[2017-12-01 12:00] VITALS: BP 107/64
[2017-12-01 12:10] LABS: PTH, INTACT 39 pg/mL (15-65)
[2017-12-01] MEDS: DIGOXIN 0.125 MG TABLET PO SCH (13:53)
[2017-12-01 16:00] VITALS: BP 103/55
[2017-12-01] MEDS: RIVAROXABAN 10 MG TABLET PO SCH (17:40)
--- NOTE | 2017-12-01 18:38 | NUR ---
PAN WASHER END NOTES PATIENT IS RESTING IN BED, NO SIGNS OF DISTRESS, WILL ENDORSE TO SEARCH MARKETING COORDINATOR FOR CONTINUITY OF CARE.
--- NOTE | 2017-12-01 19:38 | NUR ---
TOM RN INITIAL NOTES RECEIVED PATIENT AWAKE IN BED, AOX2-3, NC OFF AT THIS TIME SATURATING AT 98% O2, ON TELE MONITORING CONTROLLED AFIB 60'S HR, ABLE TO USE URINAL, IV LH 20G NS@ 75 ML/HR, CO OF CHRONIC ARTHRITIS PAIN, ON ROUTINE PAIN MGMT, WILL GIVE SCHEDULED PAIN MEDICATION, BED IN LOW AND LOCKED POSITION CALL LIGHT WITHIN REACH, WILL CONTINUE TO MONITOR.
[2017-12-01 20:00] VITALS: BP 110/73
[2017-12-01] MEDS: TAMSULOSIN 0.4 MG CAP.SR.24H PO SCH (21:39)
[2017-12-01] MEDS: SENNOSIDES 8.6 MG TABLET PO SCH (21:39)
[2017-12-01] MEDS: QUETIAPINE FUMARATE 100 MG TABLET PO SCH (21:39)
[2017-12-01] MEDS: ATORVASTATIN 10 MG TABLET PO SCH (21:40)
[2017-12-01] MEDS: METOPROLOL SUCCINATE 25 MG TAB.SR.24H PO SCH (23:30)
[2017-12-02] VITALS: BP 115/70
[2017-12-02] MEDS: AMPICILLIN 2 GM in IV NS 0.9% 100 ML IV SCH ×4 (00:22→17:09)
[2017-12-02 04:43] VITALS: BP 101/58
[2017-12-02] MEDS: IV NS 0.9% 1,000 ML IV PRN (05:09)
--- NOTE | 2017-12-02 06:07 | NUR ---
RN TEL CLOSING NOTE PT ENDORSED IN STABLE CONDITION, VS, NO SOB OR DENIES ANY DISCOMFORT. THROUGH SHIFT PT OFFERED TO BE CLEAN OR ASSIST WITH ADL'S PT REFUSED OFFERED X3, RISK AN AND BENEFIT EXPLAINED, PT STATED "DON'T DISTURB". SAFETY MEASURE MET WITH FREQUENT ROUNDING. CL WR.
--- NOTE | 2017-12-02 07:30 | NUR ---
RN INITIAL NOTES RECEIVED PATIENT AWAKE IN BED, AOX2-3, SATURATING AT 98% O2, ON TELE MONITORING CONTROLLED AFIB 60'S HR, ABLE TO USE URINAL, IV LH 20G NS@ 75 ML/HR, C/O OF CHRONIC ARTHRITIS PAIN, ON ROUTINE PAIN MGMT, WILL GIVE SCHEDULED PAIN MEDICATION, BED IN LOW AND LOCKED POSITION CALL LIGHT WITHIN REACH, WILL CONTINUE TO MONITOR.
[2017-12-02 08:00] VITALS: BP 101/58
[2017-12-02] MEDS: PANTOPRAZOLE 40 MG TABLET.DR PO SCH (08:41)
[2017-12-02] MEDS: GLUCERNA SHAKE 237 ML CAN PO SCH ×2 (08:41→17:09)
[2017-12-02] MEDS: DULOXETINE HCL 30 MG CAPSULE.DR PO SCH (08:41)
[2017-12-02] MEDS: predniSONE 10 MG TABLET PO SCH (08:42)
[2017-12-02] MEDS: LamoTRIgine 25 MG TABLET PO SCH ×2 (08:42→21:43)
[2017-12-02] MEDS: MORPHINE SULFATE IR 15 MG TABLET PO SCH ×2 (08:46→21:45)
[2017-12-02] MEDS: LISINOPRIL (5MG) 5 MG TABLET PO SCH (08:46)
[2017-12-02 12:00] VITALS: BP 112/68
[2017-12-02] MEDS: DIGOXIN 0.125 MG TABLET PO SCH (12:38)
[2017-12-02 16:00] VITALS: BP 140/68
[2017-12-02] MEDS: RIVAROXABAN 10 MG TABLET PO SCH (17:10)
[2017-12-02 20:00] VITALS: BP 131/84
[2017-12-02 20:26] LABS: BASOPHILS % (AUTO) 0.5 % (0.0-2.0); EOSINOPHILS % (AUTO) 0.4 % (0.0-6.0); HEMATOCRIT 28 % (39-51); HEMOGLOBIN 9.1 g/dL (13.5-17.5); LYMPHOCYTES # (AUTO) 0.6 /CMM (0.8-4.8); LYMPHOCYTES % (AUTO) 7.7 % (20.0-44.0); MEAN CORPUSCULAR HGB CONC 33 g/dl (31.0-36.0); MEAN CORPUSCULAR VOLUME 84 fL (80-96); MONOCYTES # (AUTO) 0.8 /CMM (0.1-1.30); MONOCYTES % (AUTO) 11.2 % (2.0-12.0); NEUTROPHILS # (AUTO) 5.9 /CMM (1.8-8.9); NEUTROPHILS % (AUTO) 80.2 % (43.0-81.0); RDW COEFFICIENT OF VARIATION 18.2 (11.5-15.0); RED BLOOD CELL COUNT(AUTO) 3.34 MIL/uL (4.5-6.0); WHITE BLOOD COUNT (AUTO) 7.3 K/uL (4.3-11.0)
[2017-12-02 20:46] LABS: CALCIUM, SERUM 8.3 mg/dL (8.5-10.1); CARBON DIOXIDE 26 mmol/L (21-32); CHLORIDE 106 mmol/L (98-107); CREATININE 1.3 mg/dL (0.6-1.3); GLUCOSE 102 mg/dL (74-106); MAGNESIUM 1.8 mg/dL (1.8-2.4); PHOSPHORUS 3.6 mg/dL (2.5-4.9); POTASSIUM 4.7 mmol/L (3.5-5.1); SODIUM SERUM 139 mmol/L (136-145); UREA NITROGEN, BLOOD 23 mg/dL (7-18)
[2017-12-02 20:47] LABS: PLATELET COUNT (AUTO) 179 /CMM (150-450)
[2017-12-02] MEDS: TAMSULOSIN 0.4 MG CAP.SR.24H PO SCH (21:42)
[2017-12-02] MEDS: SENNOSIDES 8.6 MG TABLET PO SCH (21:42)
[2017-12-02] MEDS: ATORVASTATIN 10 MG TABLET PO SCH (21:42)
[2017-12-02] MEDS: QUETIAPINE FUMARATE 100 MG TABLET PO SCH (21:42)
[2017-12-02] MEDS: NS 0.9% IV SCH (23:37)
[2017-12-02] MEDS: AMPICILLIN IV SCH (23:37)
[2017-12-03] VITALS: BP 111/65
[2017-12-03] MEDS: METOPROLOL SUCCINATE 25 MG TAB.SR.24H PO SCH ×2 (00:35→23:39)
[2017-12-03 04:00] VITALS: BP 121/75
[2017-12-03] MEDS: AMPICILLIN IV SCH ×4 (05:16→23:38)
[2017-12-03] MEDS: NS 0.9% IV SCH ×4 (05:16→23:38)
[2017-12-03 07:02] LABS: CALCIUM, SERUM 9.1 mg/dL (8.5-10.1); CARBON DIOXIDE 28 mmol/L (21-32); CHLORIDE 107 mmol/L (98-107); CREATININE 1.3 mg/dL (0.6-1.3); GLUCOSE 90 mg/dL (74-106); POTASSIUM 4.1 mmol/L (3.5-5.1); SODIUM SERUM 142 mmol/L (136-145); UREA NITROGEN, BLOOD 23 mg/dL (7-18)
--- NOTE | 2017-12-03 07:11 | NUR ---
MS/RN Patient received Patient received from nonprofit financial controller. A/O X2-3, appears in no distress at this time. All needs attended, safety measures in place, bed in low setting, brakes locked, side railsX3 in upright position. Call light within reach, will continue to monitor and ensure safety.
[2017-12-03 07:14] LABS: BASOPHILS % (AUTO) 0.7 % (0.0-2.0); EOSINOPHILS % (AUTO) 1.6 % (0.0-6.0); HEMATOCRIT 29 % (39-51); HEMOGLOBIN 9.2 g/dL (13.5-17.5); LYMPHOCYTES % (AUTO) 14.9 % (20.0-44.0); MEAN CORPUSCULAR HGB CONC 32 g/dl (31.0-36.0); MEAN CORPUSCULAR VOLUME 84 fL (80-96); MONOCYTES % (AUTO) 14.5 % (2.0-12.0); NEUTROPHILS # (AUTO) 4.5 /CMM (1.8-8.9); NEUTROPHILS % (AUTO) 68.3 % (43.0-81.0); PLATELET COUNT (AUTO) 99 /CMM (150-450); RDW COEFFICIENT OF VARIATION 18.5 (11.5-15.0); RED BLOOD CELL COUNT(AUTO) 3.42 MIL/uL (4.5-6.0); WHITE BLOOD COUNT (AUTO) 6.6 K/uL (4.3-11.0)
[2017-12-03 08:00] VITALS: BP 136/83
[2017-12-03] MEDS: GLUCERNA SHAKE 237 ML CAN PO SCH ×2 (08:07→17:00)
[2017-12-03 08:08] LABS: *SPE ALBUMIN 2.8 g/dL (2.9-4.4); *SPE ALPHA-1-GLOBULIN 0.2 g/dL (0.0-0.4); *SPE ALPHA-2-GLOBULIN 0.6 g/dL (0.4-1.0); *SPE BETA GLOBULIN 0.9 g/dL (0.7-1.3); *SPE GLOBULIN, TOTAL 2.9 g/dL (2.2-3.9); *SPE M-SPIKE Not Observed g/dL (Not Observed); *SPEGAMMA GLOBULIN 1.1 g/dL (0.4-1.8)
[2017-12-03] MEDS: DULOXETINE HCL 30 MG CAPSULE.DR PO SCH (08:08)
[2017-12-03] MEDS: LamoTRIgine 25 MG TABLET PO SCH ×2 (08:08→21:15)
[2017-12-03] MEDS: predniSONE 10 MG TABLET PO SCH (08:08)
[2017-12-03] MEDS: LISINOPRIL (5MG) 5 MG TABLET PO SCH (08:08)
[2017-12-03] MEDS: PANTOPRAZOLE 40 MG TABLET.DR PO SCH (08:08)
[2017-12-03] MEDS: MORPHINE SULFATE IR 15 MG TABLET PO SCH ×2 (08:08→21:15)
[2017-12-03 08:50] VITALS: BP 136/83
--- NOTE | 2017-12-03 08:54 | NUR ---
MS/RN Medications Morning medications administered as ordered, compliant with medications, no difficulty swallowing.
[2017-12-03 09:27] LABS: LYMPHOCYTES % (MANUAL) 12 % (16-48); MONOCYTES % (MANUAL) 9 % (0-11.0); NEUTROPHILS % (MANUAL) 79 (42-76)
--- NOTE | 2017-12-03 10:30 | NUR ---
MS/RN S/B Dr Fagan Seen by Dr Fagan - 2Decho ordered to evaluation of dysrhythmia. For possible JEANNE tomorrow to rule out subacute bacterial endocarditis. No orders at this time to obtain consent.
--- NOTE | 2017-12-03 10:45 | NUR ---
MS/RN S/B Dr Doshi Seen by Dr Doshi - continue with current medications and plan of care.
[2017-12-03] MEDS: DIGOXIN 0.125 MG TABLET PO SCH (12:01)
--- NOTE | 2017-12-03 12:27 | NUR ---
MS/RN Digoxin Heart rate 90, 1300 dose of digoxin administered.
[2017-12-03 16:00] VITALS: BP 131/84
[2017-12-03] MEDS: RIVAROXABAN 10 MG TABLET PO SCH (17:00)
--- NOTE | 2017-12-03 18:07 | NUR ---
MS/RN End note No changes in plan of care, has remained cooperative with medications and plan of care. No order as of this time for patient to be consented for JEANNE tomorrow. Call light within reach, will continue to monitor and endorse to night monitor.
[2017-12-03 20:00] VITALS: BP 149/86
--- NOTE | 2017-12-03 20:15 | NUR ---
RN OPENING NOTES RECEIVED REPORT FROM ARMANI ROONEY. PATIENT A/A/OX2-3 W/ SOME CONFUSION BUT ABLE TO MAKE NEEDS KNOWN & STATE PAIN. BREATHING EVEN & UNLABORED, TOLERATING ROOM AIR. SKIN WARM, DRY & INTACT W/ PULSES PRESENT. RIGHT WRIST IV #20 & RIGHT UPPER ARM PICC LINE INTACT & PATENT W/ DRESSING CDI. NO IVF INFUSING @ THIS TIME. DENIES ANY PAIN OR DISCOMFORT. SAFETY MEASURES IN PLACE W/ BED ALARM ON & CALL LIGHT WITHIN REACH. ABLE TO USE URINAL & SIT ON SIDE OF BED INDEPENDENTLY BUT INSTRUCTED TO CALL FOR ASSISTANCE. WILL CONTINUE TO MONITOR.
[2017-12-03] MEDS: SENNOSIDES 8.6 MG TABLET PO SCH (21:14)
[2017-12-03] MEDS: QUETIAPINE FUMARATE 100 MG TABLET PO SCH (21:14)
[2017-12-03] MEDS: ATORVASTATIN 10 MG TABLET PO SCH (21:14)
[2017-12-03] MEDS: TAMSULOSIN 0.4 MG CAP.SR.24H PO SCH (21:15)
[2017-12-04] VITALS (39 sets, daily range): BP systolic 67–165; BP diastolic 46–104
[2017-12-04] MEDS: AMPICILLIN IV SCH ×3 (06:00→17:42)
[2017-12-04] MEDS: NS 0.9% IV SCH ×3 (06:00→17:42)
[2017-12-04 06:19] LABS: BASOPHILS # (AUTO) 0.1 /CMM (0.0-0.2); BASOPHILS % (AUTO) 0.8 % (0.0-2.0); EOSINOPHILS % (AUTO) 1.7 % (0.0-6.0); HEMATOCRIT 25 % (39-51); HEMOGLOBIN 8.1 g/dL (13.5-17.5); LYMPHOCYTES # (AUTO) 1.1 /CMM (0.8-4.8); LYMPHOCYTES % (AUTO) 17.3 % (20.0-44.0); MEAN CORPUSCULAR HGB CONC 32 g/dl (31.0-36.0); MEAN CORPUSCULAR VOLUME 84 fL (80-96); MONOCYTES # (AUTO) 0.9 /CMM (0.1-1.30); MONOCYTES % (AUTO) 14.9 % (2.0-12.0); NEUTROPHILS % (AUTO) 65.3 % (43.0-81.0); PLATELET COUNT (AUTO) 83 /CMM (150-450); RDW COEFFICIENT OF VARIATION 18.8 (11.5-15.0); RED BLOOD CELL COUNT(AUTO) 3.01 MIL/uL (4.5-6.0); WHITE BLOOD COUNT (AUTO) 6.1 K/uL (4.3-11.0)
[2017-12-04 06:53] LABS: CALCIUM, SERUM 8.6 mg/dL (8.5-10.1); CARBON DIOXIDE 28 mmol/L (21-32); CHLORIDE 108 mmol/L (98-107); CREATININE 1.2 mg/dL (0.6-1.3); GLUCOSE 93 mg/dL (74-106); SODIUM SERUM 143 mmol/L (136-145); UREA NITROGEN, BLOOD 20 mg/dL (7-18)
[2017-12-04] MEDS: PANTOPRAZOLE 40 MG TABLET.DR PO SCH (07:30)
--- NOTE | 2017-12-04 07:34 | NUR ---
MS/RN OPENING NOTE PATIENT IN BED AWAKE. ALERT AND ORIENTED X2. DENIES SOB. RESPIRATION REGULAR AND UNLABORED. DENIES PAIN. PATIENT IN NO APPARENT DISTRESS. PATIENT NPO SINCE MIDNIGHT. RIGHT WRIST G 20 PATENT AND SALINE LOCKED. LORENZO PICC LINE PATENT AND SALINE LOCKED. BED LOW AND LOCKED. SIDE RAILS UP X3. CALL LIGHT WITHIN REACH. WILL CONTINUE TO MONITOR.
[2017-12-04] MEDS: GLUCERNA SHAKE 237 ML CAN PO SCH (08:00)
[2017-12-04] MEDS: DULOXETINE HCL 30 MG CAPSULE.DR PO SCH (09:00)
[2017-12-04] MEDS: predniSONE 10 MG TABLET PO SCH (09:00)
[2017-12-04] MEDS: LISINOPRIL (5MG) 5 MG TABLET PO SCH (09:00)
[2017-12-04] MEDS: LamoTRIgine 25 MG TABLET PO SCH ×2 (09:00→20:04)
[2017-12-04] MEDS: MORPHINE SULFATE IR 15 MG TABLET PO SCH ×2 (09:00→20:13)
--- NOTE | 2017-12-04 11:30 | NUR ---
MS/RN NOTE PATIENT ALERT AND ORIENTED X3. DENIES SOB. RESPIRATION REGULAR AND UNLABORED. DENIES PAIN. PATIENT NPO SINCE MIDNIGHT. PATIENT IS TAKE TO ICU FOR DIAGNOSTIC TEST. PATIENT LEFT THE TOM UNIT IN STABLE CONDITION.
--- NOTE | 2017-12-04 11:40 | NUR ---
MS/RN NOTE REPORT GIVEN TO INDRA.
--- NOTE | 2017-12-04 11:40 | NUR ---
ICU/RN PT TRANSFERRED FROM M/S UNIT FOR JEANNE .PT PLACED ON MONITOR. CONTROL A-FIB ,HR-80-90 BPM.V/S STABLE,AFEBRILE.NO PAIN REPORTED AT THIS TIME.PT IS AWAKE,ALERT-3.RIGHT UPPER PICC LINE.
[2017-12-04] MEDS ORDERED: ANESTHESIA TRAY IN PYXIS 1 EA TRAY MC ONE (11:58)
--- NOTE | 2017-12-04 13:00 | NUR ---
ICU/RN PT S/P JEANNE. PT TOLERATED PROCEDURE WELL. V/S STABLE.AWAKE. RECEIVED ORDER FROM DR DELGADO KEEP PT IN ICU.PT HAS ENDOCARDITIS.OK TO ORDER LUNCH.CONTINUE MONITORING.
[2017-12-04] MEDS: DIGOXIN 0.125 MG TABLET PO SCH (13:36)
[2017-12-04] MEDS: RIVAROXABAN 10 MG TABLET PO SCH (16:40)
--- NOTE | 2017-12-04 17:00 | NUR ---
ICU/RN DUE MEDS ARE GIVEN ORDERED.PT IS RESTING IN THE BED.V/S STABLE,AFEBRILE.NO PAIN REPORTED AT THIS TIME.CONTINUE MONITORING.
[2017-12-04] MEDS: ENSURE ENLIVE CHOC 237 ML CAN PO SCH (17:41)
--- NOTE | 2017-12-04 19:30 | NUR ---
MUNICIPAL SERVICES MANAGER INITIAL NOTE RECEIVED PATIENT AWAKE A/OX3, ABLE TO MAKE NEEDS KNOWN. DENIES CHEST PAIN. STATES HE HAS GENERALIZED ARTHRITIC PAIN THAT'S CONSTANT, BUT TOLERABLE AT THIS TIME. DENIES SOB AT REST, ONLY ON EXERTION. RESPIRATIONS EVEN AND UNLABORED ON 2LPMO2 VIA NC. SKIN WARM AND DRY TO TOUCH. WITH LORENZO PICC LINE PATENT AND INTACT. ON TELE MONITOR AFIB CONTROLLED. HOB ELEVATED. SIDE RAILS UP AND LOCKED. BED KEPT AT LOWEST POSITION. CALL LIGHT KEPT WITHIN EASY REACH. WILL CONTINUE TO MONITOR.
[2017-12-04] MEDS: QUETIAPINE FUMARATE 100 MG TABLET PO SCH (21:27)
[2017-12-04] MEDS: SENNOSIDES 8.6 MG TABLET PO SCH (21:27)
[2017-12-04] MEDS: ATORVASTATIN 10 MG TABLET PO SCH (21:27)
[2017-12-04] MEDS: TAMSULOSIN 0.4 MG CAP.SR.24H PO SCH (21:27)
--- NOTE | 2017-12-04 22:00 | NUR ---
HOME DELIVERY DRIVER NOTE OFFERED PATIENT BED BATH AND LINEN CHANGE, PATIENT REFUSED, STATES HELL DO IT IN THE MORNING.
[2017-12-04] MEDS: METOPROLOL SUCCINATE 25 MG TAB.SR.24H PO SCH (23:38)
[2017-12-05] VITALS (11 sets, daily range): BP systolic 92–125; BP diastolic 48–78
[2017-12-05] MEDS: AMPICILLIN 2 GM in IV NS 0.9% 100 ML IV SCH ×3 (00:28→12:27)
[2017-12-05 04:27] LABS: BASOPHILS % (AUTO) 0.4 % (0.0-2.0); EOSINOPHILS % (AUTO) 1.1 % (0.0-6.0); HEMATOCRIT 26 % (39-51); HEMOGLOBIN 8.2 g/dL (13.5-17.5); MEAN CORPUSCULAR HGB CONC 32 g/dl (31.0-36.0); MEAN CORPUSCULAR VOLUME 84 fL (80-96); MONOCYTES % (AUTO) 13.8 % (2.0-12.0); NEUTROPHILS # (AUTO) 5.1 /CMM (1.8-8.9); NEUTROPHILS % (AUTO) 70.7 % (43.0-81.0); PLATELET COUNT (AUTO) 160 /CMM (150-450); RDW COEFFICIENT OF VARIATION 17.7 (11.5-15.0); RED BLOOD CELL COUNT(AUTO) 3.04 MIL/uL (4.5-6.0); WHITE BLOOD COUNT (AUTO) 7.2 K/uL (4.3-11.0)
[2017-12-05 04:42] LABS: CALCIUM, SERUM 8.5 mg/dL (8.5-10.1); CARBON DIOXIDE 30 mmol/L (21-32); CHLORIDE 105 mmol/L (98-107); CREATININE 1.2 mg/dL (0.6-1.3); GLUCOSE 89 mg/dL (74-106); MAGNESIUM 1.8 mg/dL (1.8-2.4); PHOSPHORUS 3.8 mg/dL (2.5-4.9); POTASSIUM 4.2 mmol/L (3.5-5.1); SODIUM SERUM 141 mmol/L (136-145); UREA NITROGEN, BLOOD 18 mg/dL (7-18)
--- NOTE | 2017-12-05 05:47 | NUR ---
NEAR EASTERN ARCHAEOLOGY LECTURER NOTE SEEN AND EXAMINED BY DR. YOUNG
--- NOTE | 2017-12-05 06:50 | NUR ---
SCOUTS NOTE NO SIGNIFICANT CHANGES OVERNIGHT. ALL DUE MEDS GIVEN. ALL NEEDS ANTICIPATED AND MET. REFUSED BED BATH OR LINEN CHANGE. REFUSED TO HAVE DINNER TRAY REMOVED FROM BEDSIDE. DENIES CHEST PAIN. SLEPT THROUGH THE NIGHT. HOB ELEVATED. SIDE RAILS UP AND LOCKED. BED KEPT AT LOWEST POSITION. CALL LIGHT KEPT WITHIN EASY REACH. WILL ENDORSE CONTINUITY OF CARE TO AM NURSE.
--- NOTE | 2017-12-05 07:10 | NUR ---
RN INITIAL NOTES: REC'D PT ASLEEP ON BED, EASILY AROUSABLE, A/O X 2-3, FORGETFUL AT TIMES. ON NC AT 2LPM/NC, NO SOB. ON TELEMONITOR, AFIB CONTROLLED. HAS LORENZO PICC LINE, TLC, FLUSHING WELL, NO S/SX OF INFECTION/INFILTRATION NOTED. PROVIDED COMFORT & SAFETY MEASURES. BED KEPT LOW & IN LOCKED POS. CALL LIGHT PLACED W/IN REACH. WILL CONTINUE TO MONITOR & ATTEND PT NEEDS. Addendum: 12/05/17 at 1042 by CHEMA RASHEED RN CORRECTION: LORENZO PICC LINE, DOUBLE LUMEN & R WRIST G20.
[2017-12-05] MEDS: PANTOPRAZOLE 40 MG TABLET.DR PO SCH (07:37)
[2017-12-05] MEDS: ENSURE ENLIVE CHOC 237 ML CAN PO SCH ×2 (07:39→12:27)
[2017-12-05] MEDS: DULOXETINE HCL 30 MG CAPSULE.DR PO SCH (08:13)
[2017-12-05] MEDS: predniSONE 10 MG TABLET PO SCH (08:14)
[2017-12-05] MEDS: LISINOPRIL (5MG) 5 MG TABLET PO SCH (08:14)
[2017-12-05] MEDS: MORPHINE SULFATE IR 15 MG TABLET PO SCH (08:14)
[2017-12-05] MEDS: LamoTRIgine 25 MG TABLET PO SCH (08:14)
--- NOTE | 2017-12-05 09:57 | NUR ---
RN NOTES: PT TRANSFERRED VIA WHEELCHAIR TO [facility] 322/2 ORDERED, ACCOMPANIED BY 2 RNS. REPORT GIVEN TO NEVIN TURCIOS. NO CONCERN/S IDENTIFIED DURING TRANSFER. IV LINE ACCESS KEPT PATENT & INTACT. ALL BELONGINGS SENT W/ THE PT.
--- NOTE | 2017-12-05 09:57 | NUR ---
MS VENTILATED RIB FITTER RECEIVING NOTES RECEIVED PT FROM ICU NURSE IN STABLE CONDITION. PT IS A/O X3. NO SOB OR SIGNS OF DISTRESS NOTED. BREATHING IS EVEN AND UNLABORED. VITALS STABLE AT THIS TIME. PT ON 2L VIA NC AND SATING WELL. RIGHT UPPER ARM PICC LINE NOTED TO BE PATENT AND INTACT. NO REDNESS OR SIGNS OF INFILTRATION NOTED. BED IN LOW LOCKED POSITION, SIDE RAILS UP X2, CALL LIGHT WITHIN REACH, BED ALARM ON. WILL CONTINUE TO MONITOR
[2017-12-05] MEDS: DIGOXIN 0.125 MG TABLET PO SCH (12:28)
--- NOTE | 2017-12-05 15:40 | NUR ---
MS GENERAL LITHOGRAPHIC WORKER NOTES PT WAS DISCHARGED FROM FACILITY IN STABLE CONDITION. ALL NEEDS WERE MET DURING SHIFT AND ORDERS CARRIED OUT ACCORDINGLY. ALL DUE MEDS WERE GIVEN. BELONGINGS VERIFIED AND TAKEN BY AMBULANCE STAFF. PICC LINE DRESSING CHANGED BY PICC LINE NURSE. PICC IS PATENT AND INTACT. NO REDNESS OR SIGNS OF INFILTRATION NOTED PRIOR TO D/C. PHOTOS OF CENTRAL LINE TAKE PRIOR TO D/C AND PLACED IN PT'S CHART. REPORT WAS CALLED AND GIVEN TO MIRTA THE RECEIVING NURSE AT [facility]. MIRTA WAS MADE AWARE THAT THE PT IS COMING WITH A PICC LINE AND WILL CONTINUE ABX THERAPY AT THE FACILITY. PT SIGNED ALL DISCHARGE INSTRUCTIONS AND BELONGINGS FORM. COPIES MADE AND PLACE IN PT'S CHART. PT WAS SAFELY MOVED FROM BED TO [place] AND LEFT WITH ALL BELONGINGS.
== END 2017-12-05 15:15 | DRG 288 ==
LOC: TELE1 21:37 → TELE-TD 11-29 01:21 → TELE1 12-01 12:04 → MEDSG1 12-03 10:53 → ICU 12-04 11:32 → MED 12-05 09:43
PROVIDERS: ADMIT Nurse Practitioner Acute Care; ATTEND Nurse Practitioner Acute Care
PROC: 02HV33Z Insertion of Infusion Device into Superior Vena Cava, Percutaneous Approach (ICD-10-PCS; principal; 2017-12-03)
PROC: B548ZZA Ultrasonography of Superior Vena Cava, Guidance (ICD-10-PCS; 2017-12-03)
PROC: B246ZZ4 Ultrasonography of Right and Left Heart, Transesophageal (ICD-10-PCS; 2017-12-04)
DX: I33.0 Acute and subacute infective endocarditis (principal); N17.0 Acute kidney failure with tubular necrosis; N39.0 Urinary tract infection, site not specified; I13.0 Hypertensive heart and chronic kidney disease with heart failure and stage 1 through stage 4 chronic kidney disease, or unspecified chronic kidney disease; E44.0 Moderate protein-calorie malnutrition; D68.59 Other primary thrombophilia; F31.64 Bipolar disorder, current episode mixed, severe, with psychotic features; I25.10 Atherosclerotic heart disease of native coronary artery without angina pectoris; N18.9 Chronic kidney disease, unspecified; F41.9 Anxiety disorder, unspecified; E78.5 Hyperlipidemia, unspecified; B95.2 Enterococcus as the cause of diseases classified elsewhere; I50.9 Heart failure, unspecified; I05.9 Rheumatic mitral valve disease, unspecified; M19.90 Unspecified osteoarthritis, unspecified site; K21.9 Gastro-esophageal reflux disease without esophagitis; F03.90 Unspecified dementia, unspecified severity, without behavioral disturbance, psychotic disturbance, mood disturbance, and anxiety; Z95.1 Presence of aortocoronary bypass graft; Z79.01 Long term (current) use of anticoagulants; Z79.899 Other long term (current) drug therapy; D64.9 Anemia, unspecified; Z73.6 Limitation of activities due to disability; F29 Unspecified psychosis not due to a substance or known physiological condition; N40.0 Benign prostatic hyperplasia without lower urinary tract symptoms; I48.2 Chronic atrial fibrillation
CPT/HCPCS: 36415; 36569; 71045-TC; 72146-TC; 72148-TC; 76770-TC; 80048-TC; 80053-TC; 80162-TC; 81000-TC; 82550-TC; 82570-TC; 83735-TC; 83970; 84100-TC; 84155; 84155-TC; 84165; 84300-TC; 85025-TC; 86850-TC; 87040-TC; 87081-TC; 87086-TC; 93307-TC; 93312-TC; A4216; A6402; C1751; J0290; J7030; J7050; J7060; Z7610

== ENCOUNTER 2018-08-30 18:33 | Inpatient (IN) | payer MEDICAID, MEDICARE ==
[~2018-08-30] VITALS: Ht 172.7 cm; Wt 88.5 kg
[~2018-08-30 18:33] MED LIST changes: +AMPI2VIA14 IV; +HYDR-4354 PO; -HYDR-548 PO; +LAMO25TA10 PO; -LAMO25TA5 PO; +LORA1TAB PO; +MAG30ORA PO; +MAGN400O6 PO; -SENN-167 PO; +SENN-168 PO
--- NOTE | 2018-08-30 18:40 | NUR ---
BIBPA FOR SOB, BLE EDEMA X 1 WEEK. SENT BY PMD FUR FURTHER EVAL. TO ER BED 3, HOOKED TO MONITOR, CHNAGED TO GOWN, AWAITING MD FITZPATRICK
--- NOTE | 2018-08-30 18:50 | NUR ---
DR KILGORE AT BEDSIDE FOR EVAL.
[2018-08-30] MEDS ORDERED: DEXAMETHASONE SOD PHOSPHATE 10 MG/ML VIAL ONE (19:00)
[2018-08-30] MEDS ORDERED: IV NS 0.9% 1,000 ML BAG IV ONE (19:00)
[2018-08-30] MEDS ORDERED: DIAZEPAM 10 MG TABLET PO ONE (19:00)
[2018-08-30] MEDS ORDERED: DIAZEPAM 5 MG TABLET ONE (19:00)
[2018-08-30] MEDS ORDERED: ONDANSETRON HCL/PF 4 MG/2 ML VIAL ONE (19:00)
[2018-08-30] MEDS ORDERED: ONDANSETRON HCL/PF 4 MG/2 ML VIAL IVP ONE (19:00)
[2018-08-30] MEDS ORDERED: DEXAMETHASONE SOD PHOSPHATE 10 MG/ML VIAL IV ONE (19:00)
[2018-08-30] MEDS ORDERED: OMEG1CAP PO (19:03)
[2018-08-30] MEDS ORDERED: MULT-447 PO (19:03)
[2018-08-30] MEDS ORDERED: QUET25TA PO (19:03)
[2018-08-30] MEDS ORDERED: BIMA2.5D5 EACHEYE (19:03)
[2018-08-30] MEDS ORDERED: AMIN30LI27 PO (19:03)
[2018-08-30] MEDS ORDERED: BRIM5DRO EACHEYE (19:03)
[2018-08-30] MEDS ORDERED: TIMO5DRO35 EACHEYE (19:03)
[2018-08-30] MEDS ORDERED: MORP15TA10 PO (19:03)
[2018-08-30] MEDS ORDERED: PRED5DRO16 RIGHTEYE (19:03)
[2018-08-30] MEDS ORDERED: CHOL100044 PO (19:03)
[2018-08-30] MEDS ORDERED: POLY15DR40 EACHEYE (19:03)
[2018-08-30] MEDS ORDERED: DORZ10DR10 EACHEYE (19:03)
[2018-08-30] MEDS ORDERED: MIRT15TA7 PO (19:03)
[2018-08-30 19:16] LABS: BASOPHILS # (AUTO) 0.1 /CMM (0.0-0.2); BASOPHILS % (AUTO) 0.6 % (0.0-2.0); EOSINOPHILS % (AUTO) 1.2 % (0.0-6.0); HEMATOCRIT 33 % (39-51); HEMOGLOBIN 10.3 g/dL (13.5-17.5); LYMPHOCYTES % (AUTO) 10.7 % (20.0-44.0); MEAN CORPUSCULAR HGB CONC 31 g/dl (31.0-36.0); MEAN CORPUSCULAR VOLUME 79 fL (80-96); NEUTROPHILS # (AUTO) 6.9 /CMM (1.8-8.9); NEUTROPHILS % (AUTO) 76.5 % (43.0-81.0); PLATELET COUNT (AUTO) 204 /CMM (150-450); RED BLOOD CELL COUNT(AUTO) 4.23 MIL/uL (4.5-6.0); WHITE BLOOD COUNT (AUTO) 9.1 K/uL (4.3-11.0)
--- NOTE | 2018-08-30 19:18 | NUR ---
PT WHEELED OUT FOR CT SCAN
[2018-08-30 19:26] LABS: CALCIUM, SERUM 8.8 mg/dL (8.5-10.1); CARBON DIOXIDE 33 mmol/L (21-32); CHLORIDE 107 mmol/L (98-107); CREATININE 1.4 mg/dL (0.6-1.3); GLUCOSE 99 mg/dL (74-106); POTASSIUM 3.5 mmol/L (3.5-5.1); SODIUM SERUM 143 mmol/L (136-145); UREA NITROGEN, BLOOD 33 mg/dL (7-18)
[2018-08-30 19:32] LABS: ALANINE AMINOTRANSFERASE 28 U/L (12-78); ALBUMIN 3.1 g/dL (3.4-5.0); ALKALINE PHOSPHATASE 55 U/L (46-116); ASPARTATE AMINOTRANSFERASE 21 U/L (15-37); BILIRUBIN,DIRECT 0.2 mg/dL (0.0-0.2); BILIRUBIN,TOTAL 0.5 mg/dL (0.2-1.0); TOTAL PROTEIN, SERUM 6.1 g/dL (6.4-8.2)
--- NOTE | 2018-08-30 19:40 | NUR ---
RECEIVED VERBAL ORDER FROM DR KILGORE TO STOP NS 1L. CARRIED OUT.
--- NOTE | 2018-08-30 19:50 | NUR ---
REPORT GIVEN TO RAFY ROONEY FOR ALFRED
--- NOTE | 2018-08-30 20:14 | NUR ---
[facility] CALLED. PORCELAIN FINISH SPRAYER DR JARRETT, AWAITING THEIR CALL
--- NOTE | 2018-08-30 20:20 | NUR ---
PT RESTING IN BED, NAD NOTED. WILL CONTINUE TO MONITOR. VSS.
--- NOTE | 2018-08-30 20:25 | NUR ---
CALLED HOUSE SUP FOR TELE BED
[2018-08-30] MEDS ORDERED: ASPIRIN 81 MG TAB.CHEW PO ONE (20:30)
[2018-08-30] MEDS ORDERED: ENOXAPARIN SODIUM 40 MG/0.4 ML DISP.SYRIN SQ SCH (20:30)
[2018-08-30] MEDS ORDERED: NITROGLYCERIN 0.4 MG/TAB BOTTLE SL PRN (20:30)
[2018-08-30] MEDS ORDERED: ASPIRIN 81 MG TAB.CHEW ONE (20:33)
--- NOTE | 2018-08-30 20:40 | NUR ---
REPORT GIVEN TO LIZABETH MALIN RN FOR ALFRED.
--- NOTE | 2018-08-30 20:47 | NUR ---
TELE BED 119-1 BED GIVEN
[2018-08-30 21:05] VITALS: BP 150/92
[2018-08-30 21:30] VITALS: BP 150/92
[2018-08-30] MEDS ORDERED: MAG HYDROX/AL HYDROX/SIMETH 30 ML UDC PO PRN (21:30)
[2018-08-30] MEDS ORDERED: ACETAMINOPHEN 325 MG TABLET PO PRN (21:30)
[2018-08-30] MEDS ORDERED: Medication Not On Formulary EA (Melatonin 3 MG) PO SCH (22:00)
[2018-08-30] MEDS ORDERED: BIMATOPROST 2.5 ML DROPS OP SCH (22:00)
[2018-08-30] MEDS: ENOXAPARIN SODIUM 40 MG/0.4 ML DISP.SYRIN SQ SCH (22:07)
[2018-08-30] MEDS: SENNOSIDES 8.6 MG TABLET PO SCH (22:36)
[2018-08-30] MEDS: QUETIAPINE FUMARATE 25 MG TABLET PO SCH (22:36)
[2018-08-30] MEDS: ATORVASTATIN 10 MG TABLET PO SCH (22:36)
[2018-08-30] MEDS: MIRTAZAPINE 15 MG TABLET PO SCH (22:36)
--- NOTE | 2018-08-30 23:29 | NUR ---
ADMITTING NOTES RECEIVED PT FROM ER VIA [facility], ABLE TO TRANSFER FROM [facility] TO BED. A/OX3. ON 2L O2 VIA NC, NO SOB NOTED. NO C/O PAIN AT THIS TIME. V/S TAKEN AND PHYSICAL ASSESSMENT DONE. ORIENTED TO ROOM AND USE OF CALL LIGHT. SAFETY MEASURES IN PLACED. CALL LIGHT WITHIN EASY REACH. WILL CONT TO MONITOR
[2018-08-31] VITALS: BP 152/95
[2018-08-31 04:00] VITALS: BP 142/94
[2018-08-31 06:23] LABS: BASOPHILS % (AUTO) 0.2 % (0.0-2.0); EOSINOPHILS % (AUTO) 0.2 % (0.0-6.0); HEMATOCRIT 34 % (39-51); HEMOGLOBIN 10.4 g/dL (13.5-17.5); LYMPHOCYTES # (AUTO) 0.3 /CMM (0.8-4.8); MEAN CORPUSCULAR HGB CONC 31 g/dl (31.0-36.0); MEAN CORPUSCULAR VOLUME 78 fL (80-96); MONOCYTES # (AUTO) 0.2 /CMM (0.1-1.30); MONOCYTES % (AUTO) 2.4 % (2.0-12.0); NEUTROPHILS # (AUTO) 7.6 /CMM (1.8-8.9); NEUTROPHILS % (AUTO) 93.2 % (43.0-81.0); PLATELET COUNT (AUTO) 210 /CMM (150-450); WHITE BLOOD COUNT (AUTO) 8.1 K/uL (4.3-11.0)
[2018-08-31 06:30] LABS: ALANINE AMINOTRANSFERASE 30 U/L (12-78); ALBUMIN 3.1 g/dL (3.4-5.0); ALKALINE PHOSPHATASE 52 U/L (46-116); ASPARTATE AMINOTRANSFERASE 22 U/L (15-37); BILIRUBIN,TOTAL 0.6 mg/dL (0.2-1.0); CALCIUM, SERUM 8.8 mg/dL (8.5-10.1); CARBON DIOXIDE 30 mmol/L (21-32); CHLORIDE 108 mmol/L (98-107); CREATININE 1.3 mg/dL (0.6-1.3); GLUCOSE 126 mg/dL (74-106); MAGNESIUM 1.9 mg/dL (1.8-2.4); POTASSIUM 4.8 mmol/L (3.5-5.1); SODIUM SERUM 144 mmol/L (136-145); TOTAL PROTEIN, SERUM 6.3 g/dL (6.4-8.2); UREA NITROGEN, BLOOD 31 mg/dL (7-18)
[2018-08-31 06:45] LABS: CHOLESTEROL 124 mg/dL (<200); HDL CHOLESTEROL 58 mg/dL (40-60); LDL 61 mg/dL (0-99); TRIGLYCERIDES 48 mg/dL (30-150)
--- NOTE | 2018-08-31 06:50 | NUR ---
RN NOTES PT IN STABLE CONDITION. NO ACUTE CHANGES THROUGHOUT SHIFT. ALL NEEDS ANTICIPATED. SAFETY MEASURES AND ASPIRATION PRECAUTION OBSERVED AT ALL TIMES. ENDORSED TO AM SHIFT FOR ALFRED
[2018-08-31 06:55] LABS: BILIRUBIN,URINE NEGATIVE (NEGATIVE); BLOOD, URINE NEGATIVE Ery/uL (NEGATIVE); COLOR,URINE YELLOW (YELLOW); KETONES,URINE NEGATIVE (NEGATIVE); LEUKOCYTE ESTERASE ,URINE TRACE (NEGATIVE); NITRITE, URINE POSITIVE (NEGATIVE); PROTEIN,URINE TRACE mg/dl (NEGATIVE); UGLUCOSE NEGATIVE (NEGATIVE)
[2018-08-31 06:57] LABS: APPEARANCE,URINE SLIGHTLY CLOUDY (CLEAR)
[2018-08-31 07:44] LABS: BACTERIA,URINE Many /HPF (None Seen); RBC,URINE 0-2 /HPF (0-2)
[2018-08-31 07:45] LABS: CALCIUM OXALATE CRYSTALS,UR Few /HPF (None Seen); SQUAMOUS EPITHELIAL CELL,UR None Seen /HPF (None Seen)
--- NOTE | 2018-08-31 07:45 | NUR ---
RN NOTE: RECEIVED PATIENT IN BED, AWAKE, ALERT AND ABLE TO MAKE HIS NEEDS KNOWN. RESPIRATION EVEN AND UNLABORED SATURATING 98% IN ROOM AIR. PATIENT VERBALIZED A GENERALIZED PAIN 8/10. PATIENT MADE AWARE OF THE SCHEDULED MORPHINE SULFATE AND IT WILL BE GIVEN TO THE PATIENT. (L) AC IV SITE NOTED PATENT AND INTACT. BED ALARMED AND LOCKED AT ALL TIMES. CALL LIGHT WITHIN REACH. NEEDS ANTICIPATED.
[2018-08-31 08:00] VITALS: BP 167/96
[2018-08-31] MEDS: DORZOLAMIDE OPTH 2% 10 ML BOTTLE EACHEYE SCH ×2 (08:37→17:57)
[2018-08-31] MEDS: DULOXETINE HCL 20 MG CAPSULE.DR PO SCH ×2 (08:38→17:58)
[2018-08-31] MEDS: prednisoLONE ACET 1% OPHT DROP 5 ML BOTTLE RIGHTEYE SCH ×3 (08:38→17:57)
[2018-08-31] MEDS: ASPIRIN EC 325 MG TABLET.DR PO SCH (08:39)
[2018-08-31] MEDS: LamoTRIgine 25 MG TABLET PO SCH (08:39)
[2018-08-31] MEDS: QUETIAPINE FUMARATE 25 MG TABLET PO SCH ×3 (08:40→21:44)
[2018-08-31] MEDS: MORPHINE SULFATE SR 15 MG TABLET.SA PO SCH ×2 (08:40→21:00)
[2018-08-31] MEDS: predniSONE 10 MG TABLET PO SCH (08:40)
[2018-08-31] MEDS: MULTIVIT W/MINERALS 1 TAB TABLET PO SCH (08:41)
[2018-08-31] MEDS: CHOLECALCIFEROL 1,000 UNIT TABLET (VIT D3) PO SCH (08:41)
[2018-08-31] MEDS: PROSOURCE / PROSTAT (PYXIS) 30 ML UDC PO SCH (08:42)
[2018-08-31] MEDS ORDERED: FUROSEMIDE 40 MG/4 ML VIAL IV SCH (09:00)
[2018-08-31] MEDS ORDERED: BRIMONIDINE TARTRATE OPHT SOLN 5 ML BOTTLE EACHEYE SCH (09:00)
[2018-08-31] MEDS ORDERED: Medication Not On Formulary EA (Omega-3 Fatty Acids/Fish Oil (Fish Oil 1,000 Mg Capsule) PO SCH (09:00)
--- NOTE | 2018-08-31 09:00 | NUR ---
RN NOTE: PATIENT HAD THE US OF KIDNEYS DONE AT BEDSIDE. PATIENT TOLERATED IT WELL.
[2018-08-31] MEDS: TIMOLOL 0.5% SOLN OPHTH 5 ML BOTTLE EACHEYE SCH ×2 (09:28→17:56)
[2018-08-31] MEDS: POLYVINYL ALCOHOL 15 ML BOTTLE EACHEYE SCH ×3 (09:28→17:55)
--- NOTE | 2018-08-31 09:45 | NUR ---
RN NOTE: CALLED AND SPOKE WITH TONO PHARMACIST RE: THE PATIENT'S BRIMONIDINE EYE DROP. PER TONO, THE MEDICATION WAS NONFORMULARY AND WILL CHECK FOR A REPLACEMENT FOR IT.
--- NOTE | 2018-08-31 10:45 | NUR ---
RN NOTE: PATIENT HAD ECHO CARDIOGRAM AT THE BEDSIDE. EF WAS 60% PER CORRECTIVE AND MANUAL ARTS THERAPIST. PATIENT TOLERATED IT WELL.
[2018-08-31 12:00] VITALS: BP 140/83
[2018-08-31] MEDS: METOPROLOL TARTRATE 50 MG TABLET PO SCH ×2 (13:50→21:00)
[2018-08-31] MEDS: DIGOXIN 0.125 MG TABLET PO SCH (13:50)
[2018-08-31 16:00] VITALS: BP 129/92
[2018-08-31] MEDS: HYDROCODONE/APAP 10/325MG 1 EA TABLET PO PRN (16:28)
[2018-08-31] MEDS: FUROSEMIDE 40 MG/4 ML VIAL IV SCH (17:54)
[2018-08-31] MEDS: BRIMONIDINE TARTRATE OPHT SOLN 5 ML BOTTLE EACHEYE SCH (17:55)
--- NOTE | 2018-08-31 19:10 | NUR ---
TELE/RN INITIAL NOTES RECEIVED PT IN BED, ALERT AND VERBALLY RESPONSIVE. AFIB HR 80S ON TELE. ON ROOM AIR, NO SOB NOTED. LEFT AC G18 INTACT AND PATENT. HOB ELEVATED. SAFETY MEASURES IN PLACED. CALL LIGHT WITHIN EASY REACH. WILL CONT TO MONITOR
--- NOTE | 2018-08-31 19:48 | NUR ---
RN NOTE: PATIENT ON STABLE CONDITION. ATE ALL HIS MEALS 100%. BEDSIDE REPORT WAS GIVEN TO PM SHIFT NURSE FOR CONTINUITY OF CARE.
[2018-08-31 20:00] VITALS: BP 98/54
--- NOTE | 2018-08-31 21:00 | NUR ---
RN NOTES 2100 DUE MORPHINE PO AND METOPROLOL PO HELD, RECHECKED PT'S BP= 96/64. WILL CONT TO MONITOR PT
[2018-08-31] MEDS: ENOXAPARIN SODIUM 40 MG/0.4 ML DISP.SYRIN SQ SCH (21:44)
[2018-08-31] MEDS: SENNOSIDES 8.6 MG TABLET PO SCH (21:44)
[2018-08-31] MEDS: ATORVASTATIN 10 MG TABLET PO SCH (21:44)
[2018-08-31] MEDS: LATANOPROST EYE DROP 0.005% 2.5 ML BOTTLE EACHEYE SCH (21:44)
[2018-08-31] MEDS: MIRTAZAPINE 15 MG TABLET PO SCH (21:44)
[2018-09-01] VITALS: BP 97/63
[2018-09-01] MEDS: HYDROCODONE/APAP 10/325MG 1 EA TABLET PO PRN ×2 (00:02→14:43)
--- NOTE | 2018-09-01 05:00 | NUR ---
RN NOTES MILANESE KNITTING MACHINE OPERATOR APPROACHED PRIMARY RN THAT PT IS REFUSING TO HAVE VS TAKEN. WENT TO PT ROOM AND OFFERED TO CHECK VS, EXPLAINED RISKS AND BENEFITS. STILL PT STRONGLY REFUSED AND STATED, "NOBODY WAKES ME UP UNTIL 9AM." WILL CONT TO MONITOR PT
--- NOTE | 2018-09-01 06:54 | NUR ---
RN NOTES PT IN STABLE CONDITION. NO ACUTE CHANGES THROUGHOUT SHIFT. ALL NEEDS ANTICIPATED, SAFETY MEASURES OBSERVED AT ALL TIMES. ENDORSED TO AM SHIFT RN FOR ALFRED
--- NOTE | 2018-09-01 07:00 | NUR ---
RADIO TELEVISION ANNOUNCER INITIAL NOTES RECEIVED PT IN BED, SLEEPING BUT EASY TO AROUSE. AFIB HR 100S ON TELE. ON ROOM AIR, NO SOB NOTED. LEFT AC G18 INTACT AND PATENT. HOB ELEVATED. SAFETY MEASURES IN PLACED. CALL LIGHT WITHIN EASY REACH. WILL CONT TO MONITOR.
[2018-09-01 07:13] LABS: BASOPHILS # (AUTO) 0.1 /CMM (0.0-0.2); BASOPHILS % (AUTO) 1.3 % (0.0-2.0); EOSINOPHILS % (AUTO) 0.2 % (0.0-6.0); HEMATOCRIT 32 % (39-51); HEMOGLOBIN 9.9 g/dL (13.5-17.5); LYMPHOCYTES # (AUTO) 0.8 /CMM (0.8-4.8); LYMPHOCYTES % (AUTO) 6.9 % (20.0-44.0); MEAN CORPUSCULAR HGB CONC 31 g/dl (31.0-36.0); MEAN CORPUSCULAR VOLUME 79 fL (80-96); MONOCYTES # (AUTO) 1.1 /CMM (0.1-1.30); MONOCYTES % (AUTO) 10.2 % (2.0-12.0); NEUTROPHILS # (AUTO) 8.8 /CMM (1.8-8.9); NEUTROPHILS % (AUTO) 81.4 % (43.0-81.0); PLATELET COUNT (AUTO) 199 /CMM (150-450); RED BLOOD CELL COUNT(AUTO) 4.02 MIL/uL (4.5-6.0); WHITE BLOOD COUNT (AUTO) 10.9 K/uL (4.3-11.0)
[2018-09-01 07:26] LABS: CREATINE KINASE, TOTAL 37 U/L (39-308)
[2018-09-01 07:29] LABS: ALANINE AMINOTRANSFERASE 45 U/L (12-78); ALBUMIN 2.9 g/dL (3.4-5.0); ALKALINE PHOSPHATASE 54 U/L (46-116); ASPARTATE AMINOTRANSFERASE 40 U/L (15-37); BILIRUBIN,TOTAL 0.4 mg/dL (0.2-1.0); CALCIUM, SERUM 8.5 mg/dL (8.5-10.1); CARBON DIOXIDE 31 mmol/L (21-32); CHLORIDE 107 mmol/L (98-107); CREATININE 1.7 mg/dL (0.6-1.3); GLUCOSE 120 mg/dL (74-106); MAGNESIUM 2.1 mg/dL (1.8-2.4); PHOSPHORUS 4.7 mg/dL (2.5-4.9); POTASSIUM 4.2 mmol/L (3.5-5.1); SODIUM SERUM 144 mmol/L (136-145); TOTAL PROTEIN, SERUM 5.7 g/dL (6.4-8.2); UREA NITROGEN, BLOOD 46 mg/dL (7-18)
[2018-09-01 08:00] VITALS: BP 117/80
[2018-09-01] MEDS: predniSONE 10 MG TABLET PO SCH (09:25)
[2018-09-01] MEDS: CHOLECALCIFEROL 1,000 UNIT TABLET (VIT D3) PO SCH (09:25)
[2018-09-01] MEDS: LamoTRIgine 25 MG TABLET PO SCH (09:26)
[2018-09-01] MEDS: QUETIAPINE FUMARATE 25 MG TABLET PO SCH ×3 (09:27→21:27)
[2018-09-01] MEDS: MULTIVIT W/MINERALS 1 TAB TABLET PO SCH (09:27)
[2018-09-01] MEDS: DULOXETINE HCL 20 MG CAPSULE.DR PO SCH ×2 (09:28→17:04)
[2018-09-01] MEDS: METOPROLOL TARTRATE 50 MG TABLET PO SCH ×2 (09:30→21:21)
[2018-09-01] MEDS: FUROSEMIDE 40 MG/4 ML VIAL IV SCH (09:31)
[2018-09-01] MEDS: ASPIRIN EC 325 MG TABLET.DR PO SCH (09:37)
[2018-09-01] MEDS: MORPHINE SULFATE SR 15 MG TABLET.SA PO SCH ×2 (09:37→21:29)
[2018-09-01] MEDS: DORZOLAMIDE OPTH 2% 10 ML BOTTLE EACHEYE SCH ×2 (09:38→17:05)
[2018-09-01] MEDS: TIMOLOL 0.5% SOLN OPHTH 5 ML BOTTLE EACHEYE SCH ×2 (09:38→17:05)
[2018-09-01] MEDS: POLYVINYL ALCOHOL 15 ML BOTTLE EACHEYE SCH ×3 (09:39→17:04)
[2018-09-01] MEDS: prednisoLONE ACET 1% OPHT DROP 5 ML BOTTLE RIGHTEYE SCH ×3 (09:39→17:04)
[2018-09-01] MEDS: BRIMONIDINE TARTRATE OPHT SOLN 5 ML BOTTLE EACHEYE SCH ×2 (09:39→17:05)
[2018-09-01] MEDS: PROSOURCE / PROSTAT (PYXIS) 30 ML UDC PO SCH (10:46)
[2018-09-01 12:00] VITALS: BP 95/63
[2018-09-01] MEDS: DIGOXIN 0.125 MG TABLET PO SCH (13:17)
[2018-09-01 16:00] VITALS: BP_SYST 120; BP_SYST 121; BP_DIAS 74; BP_DIAS 78
[2018-09-01] MEDS: APIXABAN 2.5 MG TABLET PO SCH (17:08)
--- NOTE | 2018-09-01 19:30 | NUR ---
BALANCE SCREWHEAD POLISHER CLOSING NOTES PT RESTING IN BED. ON ROOM AIR, TOLERATING WELL, NO SOB NOTED. LEFT AC G18 INTACT AND PATENT. HOB ELEVATED. SAFETY MEASURES IN PLACED. CALL LIGHT WITHIN EASY REACH. ALL MD ORDERS ATTENDED. ALL NEEDS MET. NO ACUTE CHANGES THROUGHOUT SHIFT. ENDORSED TO LIGHTING TECHNICIAN NURSE FOR ALFRED.
--- NOTE | 2018-09-01 19:47 | NUR ---
RN MS OPENING NOTES RECEIVED PT IN BED, AWAKE ALERT ORIENTEDX 3-4, BREATHING EVEN AND MINIMALLY LABORED ON ROOM AIR, NO COMPLAINT OF SHORTNESS OF BREATH AT REST, NO COUGH OR CONGESTION NOTED AT THE MOMENT. IV ACCESS ON THE L AC G18 SL PATENT AND FLUSHING. BED LOWEST LOCKED POSITION CALL LIGHT WITHIN REACH AT ALL TIMES, WILL CONTINUE TO MONITOR
[2018-09-01 20:00] VITALS: BP 123/75
[2018-09-01] MEDS: SENNOSIDES 8.6 MG TABLET PO SCH (21:27)
[2018-09-01] MEDS: MIRTAZAPINE 15 MG TABLET PO SCH (21:29)
[2018-09-01] MEDS: ATORVASTATIN 10 MG TABLET PO SCH (21:35)
[2018-09-01] MEDS: LATANOPROST EYE DROP 0.005% 2.5 ML BOTTLE EACHEYE SCH (21:35)
[2018-09-02] VITALS (7 sets, daily range): BP systolic 99–126; BP diastolic 54–75
--- NOTE | 2018-09-02 06:47 | NUR ---
RN MS CLOSING NOTES PT REMAINS IN BED, AWAKE ALERT ORIENTEDX 3-4, BREATHING EVEN AND MINIMALLY LABORED ON ROOM AIR, NO COMPLAINT OF SHORTNESS OF BREATH AT REST, NO COUGH OR CONGESTION NOTED AT THE MOMENT. IV ACCESS ON THE L AC G18 SL PATENT AND FLUSHING. BED LOWEST LOCKED POSITION CALL LIGHT WITHIN REACH AT ALL TIMES, WILL ENDORSE TO DAY NURSE FOR ALFRED.
[2018-09-02] MEDS: CHOLECALCIFEROL 1,000 UNIT TABLET (VIT D3) PO SCH (09:10)
[2018-09-02] MEDS: APIXABAN 2.5 MG TABLET PO SCH ×2 (09:11→18:56)
[2018-09-02] MEDS: FUROSEMIDE 40 MG TABLET PO SCH (09:12)
[2018-09-02] MEDS: MORPHINE SULFATE SR 15 MG TABLET.SA PO SCH ×2 (09:12→21:08)
[2018-09-02] MEDS: DULOXETINE HCL 20 MG CAPSULE.DR PO SCH ×2 (09:12→17:59)
[2018-09-02] MEDS: QUETIAPINE FUMARATE 25 MG TABLET PO SCH ×3 (09:13→21:07)
[2018-09-02] MEDS: MULTIVIT W/MINERALS 1 TAB TABLET PO SCH (09:13)
[2018-09-02] MEDS: predniSONE 10 MG TABLET PO SCH (09:13)
[2018-09-02] MEDS: LamoTRIgine 25 MG TABLET PO SCH (09:14)
[2018-09-02] MEDS: METOPROLOL TARTRATE 50 MG TABLET PO SCH ×2 (09:15→21:08)
[2018-09-02] MEDS: POLYVINYL ALCOHOL 15 ML BOTTLE EACHEYE SCH ×3 (09:16→18:02)
[2018-09-02] MEDS: BRIMONIDINE TARTRATE OPHT SOLN 5 ML BOTTLE EACHEYE SCH ×2 (09:16→18:02)
[2018-09-02] MEDS: prednisoLONE ACET 1% OPHT DROP 5 ML BOTTLE RIGHTEYE SCH ×3 (09:17→18:09)
[2018-09-02] MEDS: PROSOURCE / PROSTAT (PYXIS) 30 ML UDC PO SCH (09:19)
[2018-09-02] MEDS: TIMOLOL 0.5% SOLN OPHTH 5 ML BOTTLE EACHEYE SCH ×2 (09:25→18:01)
[2018-09-02] MEDS: DORZOLAMIDE OPTH 2% 10 ML BOTTLE EACHEYE SCH ×2 (09:25→18:00)
--- NOTE | 2018-09-02 10:16 | NUR ---
WOUND CARE CONSULT: PT PRESENTS INDEPENDENT WITH BED MOBILITY AND CONTINENT WITH SCRATCH MICHAELS AND OPEN AREAS TO LOWER LEGS, PRESENT ON ADMISSION. PT SCRATCHES AND PICKS AT HIS SKIN. RECOMMENDATIONS MADE FOR WOUND CARE AND SKIN PROTECTION. DISCUSSED WITH NURSING STAFF. WILL SEE PRN. [place] IN AGREEMENT WITH PLAN OF CARE. Addendum: 09/02/18 at 1017 by HAWA CANNONU Amended: Links added. Addendum: 09/02/18 at 1020 by HAWA CANNONU PT STATES THAT WOUNDS BEHIND LEFT KNEE ARE SELF INFLICTED FROM PICKING.
[2018-09-02 10:28] LABS: BASOPHILS # (AUTO) 0.1 /CMM (0.0-0.2); BASOPHILS % (AUTO) 0.7 % (0.0-2.0); EOSINOPHILS % (AUTO) 0.6 % (0.0-6.0); HEMATOCRIT 36 % (39-51); HEMOGLOBIN 10.9 g/dL (13.5-17.5); LYMPHOCYTES # (AUTO) 1.4 /CMM (0.8-4.8); LYMPHOCYTES % (AUTO) 11.7 % (20.0-44.0); MEAN CORPUSCULAR HGB CONC 31 g/dl (31.0-36.0); MEAN CORPUSCULAR VOLUME 79 fL (80-96); MONOCYTES # (AUTO) 1.2 /CMM (0.1-1.30); MONOCYTES % (AUTO) 10.3 % (2.0-12.0); NEUTROPHILS # (AUTO) 9.3 /CMM (1.8-8.9); NEUTROPHILS % (AUTO) 76.7 % (43.0-81.0); PLATELET COUNT (AUTO) 204 /CMM (150-450); RED BLOOD CELL COUNT(AUTO) 4.54 MIL/uL (4.5-6.0); WHITE BLOOD COUNT (AUTO) 12.1 K/uL (4.3-11.0)
[2018-09-02 10:41] LABS: ALANINE AMINOTRANSFERASE 47 U/L (12-78); ALBUMIN 3.1 g/dL (3.4-5.0); ALKALINE PHOSPHATASE 55 U/L (46-116); ASPARTATE AMINOTRANSFERASE 33 U/L (15-37); BILIRUBIN,TOTAL 0.5 mg/dL (0.2-1.0); CALCIUM, SERUM 8.8 mg/dL (8.5-10.1); CARBON DIOXIDE 30 mmol/L (21-32); CHLORIDE 104 mmol/L (98-107); CREATININE 1.9 mg/dL (0.6-1.3); GLUCOSE 116 mg/dL (74-106); MAGNESIUM 1.9 mg/dL (1.8-2.4); PHOSPHORUS 4.5 mg/dL (2.5-4.9); SODIUM SERUM 143 mmol/L (136-145); TOTAL PROTEIN, SERUM 6.2 g/dL (6.4-8.2); UREA NITROGEN, BLOOD 53 mg/dL (7-18)
[2018-09-02 10:54] LABS: LYMPHOCYTES % (MANUAL) 11 % (16-48); MONOCYTES % (MANUAL) 7 % (0-11.0); NEUTROPHILS % (MANUAL) 82 (42-76)
[2018-09-02] MEDS: DIGOXIN 0.125 MG TABLET PO SCH (13:06)
--- NOTE | 2018-09-02 19:16 | NUR ---
Note Patient remain stable ,all care given , , c/o no acute distress noted during the shift , will endorse to shift lab technician
--- NOTE | 2018-09-02 20:26 | NUR ---
MS RN INITIAL NOTES Patient in bed, awake. Stable oxygen saturation on RA, denies shortness of breath. Call light within reach, safety measure explained, verbalized understanding. Will cont to monitor.
[2018-09-02] MEDS: ATORVASTATIN 10 MG TABLET PO SCH (21:07)
[2018-09-02] MEDS: MIRTAZAPINE 15 MG TABLET PO SCH (21:07)
[2018-09-02] MEDS: SENNOSIDES 8.6 MG TABLET PO SCH (21:08)
[2018-09-02] MEDS: LATANOPROST EYE DROP 0.005% 2.5 ML BOTTLE EACHEYE SCH (21:14)
[2018-09-03 04:51] VITALS: BP 139/74
[2018-09-03 06:06] VITALS: BP 139/74
--- NOTE | 2018-09-03 06:18 | NUR ---
MS RN CLOSING NOTES Patient in bed, stable oxygen saturation on RA. Ambulates independently, standby assist, denies pain. Calm and cooperative, slept well. No acute events overnight. Call light within reach, maintained safety. Will endorse to oncoming RN.
[2018-09-03 06:22] VITALS: BP 139/74
--- NOTE | 2018-09-03 07:10 | NUR ---
MS RN OPENING NOTES RECEIVED BEDSIDE REPORT FROM PM NURSE. PT IN BED, SLEEPING BUT EASY TO AROUSABLE. ON ROOM AIR, NO SOB NO DISTRESS NOTED AT THIS TIME. LEFT AC G18 INTACT AND PATENT. HOB ELEVATED. SAFETY MEASURES IN PLACED. CALL LIGHT WITHIN EASY REACH.BED IS LOCKED AND IN LOW POSITION.SRX2.INSTRUCTED TO CALL FOR HELP. WILL CONT TO MONITOR.
[2018-09-03 08:00] VITALS: BP_SYST 104; BP_SYST 143; BP_DIAS 75; BP_DIAS 81
[2018-09-03 08:23] LABS: ALANINE AMINOTRANSFERASE 51 U/L (12-78); ALBUMIN 3.2 g/dL (3.4-5.0); ALKALINE PHOSPHATASE 58 U/L (46-116); ASPARTATE AMINOTRANSFERASE 44 U/L (15-37); BILIRUBIN,TOTAL 0.6 mg/dL (0.2-1.0); CALCIUM, SERUM 8.8 mg/dL (8.5-10.1); CARBON DIOXIDE 31 mmol/L (21-32); CHLORIDE 105 mmol/L (98-107); CREATININE 1.6 mg/dL (0.6-1.3); GLUCOSE 99 mg/dL (74-106); PHOSPHORUS 4.4 mg/dL (2.5-4.9); POTASSIUM 4.7 mmol/L (3.5-5.1); SODIUM SERUM 144 mmol/L (136-145); TOTAL PROTEIN, SERUM 6.2 g/dL (6.4-8.2); UREA NITROGEN, BLOOD 53 mg/dL (7-18)
[2018-09-03 08:41] LABS: BASOPHILS # (AUTO) 0.1 /CMM (0.0-0.2); BASOPHILS % (AUTO) 0.5 % (0.0-2.0); EOSINOPHILS % (AUTO) 1.5 % (0.0-6.0); HEMATOCRIT 37 % (39-51); HEMOGLOBIN 11.5 g/dL (13.5-17.5); LYMPHOCYTES # (AUTO) 1.4 /CMM (0.8-4.8); LYMPHOCYTES % (AUTO) 11.1 % (20.0-44.0); MEAN CORPUSCULAR HGB CONC 31 g/dl (31.0-36.0); MEAN CORPUSCULAR VOLUME 78 fL (80-96); MONOCYTES # (AUTO) 1.1 /CMM (0.1-1.30); MONOCYTES % (AUTO) 9.3 % (2.0-12.0); NEUTROPHILS # (AUTO) 9.6 /CMM (1.8-8.9); NEUTROPHILS % (AUTO) 77.6 % (43.0-81.0); RED BLOOD CELL COUNT(AUTO) 4.74 MIL/uL (4.5-6.0); WHITE BLOOD COUNT (AUTO) 12.3 K/uL (4.3-11.0)
[2018-09-03] MEDS: MORPHINE SULFATE SR 15 MG TABLET.SA PO SCH ×2 (09:00→09:04)
[2018-09-03] MEDS: CHOLECALCIFEROL 1,000 UNIT TABLET (VIT D3) PO SCH (09:02)
[2018-09-03] MEDS: predniSONE 10 MG TABLET PO SCH (09:03)
[2018-09-03] MEDS: MULTIVIT W/MINERALS 1 TAB TABLET PO SCH (09:03)
[2018-09-03] MEDS: QUETIAPINE FUMARATE 25 MG TABLET PO SCH (09:03)
[2018-09-03] MEDS: LamoTRIgine 25 MG TABLET PO SCH (09:03)
[2018-09-03] MEDS: PROSOURCE / PROSTAT (PYXIS) 30 ML UDC PO SCH (09:04)
[2018-09-03] MEDS: FUROSEMIDE 40 MG TABLET PO SCH (09:04)
[2018-09-03] MEDS: DULOXETINE HCL 20 MG CAPSULE.DR PO SCH (09:04)
[2018-09-03] MEDS: TIMOLOL 0.5% SOLN OPHTH 5 ML BOTTLE EACHEYE SCH (09:05)
[2018-09-03] MEDS: BRIMONIDINE TARTRATE OPHT SOLN 5 ML BOTTLE EACHEYE SCH (09:05)
[2018-09-03] MEDS: POLYVINYL ALCOHOL 15 ML BOTTLE EACHEYE SCH ×2 (09:05→12:39)
[2018-09-03] MEDS: DORZOLAMIDE OPTH 2% 10 ML BOTTLE EACHEYE SCH (09:06)
[2018-09-03] MEDS: prednisoLONE ACET 1% OPHT DROP 5 ML BOTTLE RIGHTEYE SCH ×2 (09:06→12:40)
[2018-09-03 09:11] VITALS: BP 140/75
[2018-09-03] MEDS: METOPROLOL TARTRATE 50 MG TABLET PO SCH (09:11)
[2018-09-03] MEDS: APIXABAN 2.5 MG TABLET PO SCH (09:12)
--- NOTE | 2018-09-03 09:23 | NUR ---
MS RN NOTE PATIENT REFUSED MS CONTIN.DISCARDED TABLET WITH ALISA ROONEY PRESENCE
[2018-09-03] MEDS: HYDROCODONE/APAP 10/325MG 1 EA TABLET PO PRN (09:33)
[2018-09-03 10:04] LABS: PLATELET COUNT (AUTO) 143 /CMM (150-450)
[2018-09-03 10:10] LABS: LYMPHOCYTES % (MANUAL) 13 % (16-48); MONOCYTES % (MANUAL) 4 % (0-11.0); NEUTROPHILS % (MANUAL) 83 (42-76)
[2018-09-03] MEDS: DIGOXIN 0.125 MG TABLET PO SCH (12:39)
[2018-09-03] MEDS ORDERED: APIX2.5T PO (15:13)
[2018-09-03] MEDS ORDERED: METO50TA16 PO (15:13)
[2018-09-03] MEDS ORDERED: FURO40TA5 PO (15:13)
--- NOTE | 2018-09-03 15:40 | NUR ---
MS SEALER AIRCRAFT NOTE SEEN BY GUSTAVO MOFFETT,UPDATED ABOUT PATIENT CONDITION.GOT ORDER TO DISCHARGE TO SNF .SEEN BY OK TO DISCHARGE.
--- NOTE | 2018-09-03 15:50 | NUR ---
MS PILATES COORDINATOR NOTE PATIENT D/C TO [facility] IN STABLE CONDITION.NO SOB NO DISTRESS NOTED.VITAL SIGNS STABLE.WOUND CCARE DONE.IV REMOVED.MINIMAL BLEEDING NOTED.PRESSURE DRESSING APPLIED.EXIT CARE GIVEN .PATIENT VERBALIZED UNDERSTANDING.REPORT GIVEN TO ALBERT ROONEY AT FACILITY. ALL BELONGINGS TAKEN.LEFT VIA AMBULANCE WITH EMT.REPORT AND DISCHARGE PAPERWORK GIVEN TO EMT.
== END 2018-09-03 15:50 | DRG 280 ==
LOC: ER 18:36 → TELE1 20:56 → MEDSG1 09-01 13:20
PROVIDERS: ADMIT Registered Nurse; ATTEND Nurse Practitioner Acute Care
DX: I13.0 Hypertensive heart and chronic kidney disease with heart failure and stage 1 through stage 4 chronic kidney disease, or unspecified chronic kidney disease (principal); N17.0 Acute kidney failure with tubular necrosis; I21.A1 Myocardial infarction type 2; I50.33 Acute on chronic diastolic (congestive) heart failure; G93.41 Metabolic encephalopathy; N39.0 Urinary tract infection, site not specified; D68.69 Other thrombophilia; N18.9 Chronic kidney disease, unspecified; I48.2 Chronic atrial fibrillation; I25.10 Atherosclerotic heart disease of native coronary artery without angina pectoris; Z95.1 Presence of aortocoronary bypass graft; K21.9 Gastro-esophageal reflux disease without esophagitis; N40.0 Benign prostatic hyperplasia without lower urinary tract symptoms; F03.90 Unspecified dementia, unspecified severity, without behavioral disturbance, psychotic disturbance, mood disturbance, and anxiety; F41.9 Anxiety disorder, unspecified; F31.9 Bipolar disorder, unspecified; E66.9 Obesity, unspecified; Z68.29 Body mass index [BMI] 29.0-29.9, adult; I34.0 Nonrheumatic mitral (valve) insufficiency; Z79.01 Long term (current) use of anticoagulants; Z79.899 Other long term (current) drug therapy; E78.5 Hyperlipidemia, unspecified
CPT/HCPCS: 36415; 70450-TC; 71045-TC; 76770-TC; 80048-TC; 80053-TC; 80061-TC; 80076-TC; 81000-TC; 82550-TC; 82962-TC; 83735-TC; 83880; 83970; 84100-TC; 84443-TC; 84484-TC; 85025-TC; 85730-TC; 87040-TC; 87081-TC; 87086-TC; 93307-TC; G0378; J1100; J1650; J1940; J2405; J7030

== ENCOUNTER 2018-10-04 16:06 | Inpatient (IN) | payer MEDICARE ==
[~2018-10-04] VITALS: Ht 185.4 cm; Wt 81.6 kg
[~2018-10-04 16:06] MED LIST changes: +AMIN30LI27 PO; -AMPI2VIA14 IV; +APIX2.5T PO; +BIMA2.5D5 EACHEYE; +BRIM5DRO EACHEYE; +CHOL100044 PO; +DORZ10DR10 EACHEYE; -FURO-145 PO; +FURO40TA5 PO; -LISI2.5T2 PO; -LORA1TAB PO; -MAGN400O6 PO; -METO25TA3 PO; +METO50TA16 PO; +MIRT15TA7 PO; -MORP15TA PO; +MORP15TA10 PO; +MULT-447 PO; +OMEG1CAP PO; -PANT40TA4 PO; +POLY15DR40 EACHEYE; +PRED5DRO16 RIGHTEYE; -RIVA10TA PO; -TAMS-12 PO; +TIMO5DRO35 EACHEYE
[2018-10-04 16:25] LABS: BASOPHILS # (AUTO) 0.1 /CMM (0.0-0.2); BASOPHILS % (AUTO) 1.5 % (0.0-2.0); EOSINOPHILS % (AUTO) 1.5 % (0.0-6.0); HEMATOCRIT 41 % (39-51); HEMOGLOBIN 12.6 g/dL (13.5-17.5); LYMPHOCYTES # (AUTO) 1.1 /CMM (0.8-4.8); LYMPHOCYTES % (AUTO) 11.8 % (20.0-44.0); MEAN CORPUSCULAR HGB CONC 31 g/dl (31.0-36.0); MEAN CORPUSCULAR VOLUME 80 fL (80-96); MONOCYTES # (AUTO) 1.1 /CMM (0.1-1.30); MONOCYTES % (AUTO) 11.7 % (2.0-12.0); NEUTROPHILS # (AUTO) 6.9 /CMM (1.8-8.9); NEUTROPHILS % (AUTO) 73.5 % (43.0-81.0); PLATELET COUNT (AUTO) 142 /CMM (150-450); RED BLOOD CELL COUNT(AUTO) 5.12 MIL/uL (4.5-6.0); WHITE BLOOD COUNT (AUTO) 9.4 K/uL (4.3-11.0)
[2018-10-04 16:39] LABS: ALANINE AMINOTRANSFERASE 28 U/L (12-78); ALKALINE PHOSPHATASE 53 U/L (46-116); ASPARTATE AMINOTRANSFERASE 25 U/L (15-37); BILIRUBIN,DIRECT 0.2 mg/dL (0.0-0.2); BILIRUBIN,TOTAL 0.6 mg/dL (0.2-1.0); CALCIUM, SERUM 9.1 mg/dL (8.5-10.1); CHLORIDE 103 mmol/L (98-107); CREATININE 1.6 mg/dL (0.6-1.3); GLUCOSE 105 mg/dL (74-106); POTASSIUM 3.5 mmol/L (3.5-5.1); SODIUM SERUM 139 mmol/L (136-145); TOTAL PROTEIN, SERUM 7.2 g/dL (6.4-8.2); UREA NITROGEN, BLOOD 38 mg/dL (7-18)
[2018-10-04] MEDS ORDERED: OLAN2.5T3 PO (16:42)
[2018-10-04] MEDS ORDERED: METO25TA20 PO (16:42)
[2018-10-04 16:44] LABS: ACETAMINOPHEN < 2 ug/ml (10-30); ALCOHOL, BLOOD < 3 mg/dL (0-0); SALICYLATE 2.1 mg/dL (2.8-20.0)
[2018-10-04 16:48] LABS: CARBON DIOXIDE 29 mmol/L (21-32)
[2018-10-04] MEDS ORDERED: PRED5DRO16 RIGHTEYE (17:04)
[2018-10-04] MEDS ORDERED: MIRT15TA7 PO (17:04)
[2018-10-04] MEDS ORDERED: APIX2.5T PO (17:04)
[2018-10-04] MEDS ORDERED: DULO20CA PO (17:04)
[2018-10-04 20:00] VITALS: BP 120/65
[2018-10-04] MEDS ORDERED: MAG HYDROX/AL HYDROX/SIMETH 30 ML UDC PO PRN (20:30)
[2018-10-04] MEDS ORDERED: LORAZEPAM 0.5 MG TABLET PO PRN (20:30)
[2018-10-04] MEDS ORDERED: MAGNESIUM HYDROXIDE 30 ML UDC PO PRN (20:30)
[2018-10-04] MEDS ORDERED: ACETAMINOPHEN 325 MG TABLET PO PRN (20:30)
[2018-10-04] MEDS ORDERED: HYDROCODONE/APAP 10/325MG 1 EA TABLET PO PRN (21:30)
[2018-10-04] MEDS ORDERED: Medication Not On Formulary EA (Melatonin 3 MG) PO SCH (22:00)
[2018-10-04] MEDS ORDERED: BIMATOPROST 2.5 ML DROPS OP SCH (22:00)
[2018-10-04] MEDS: TEMAZEPAM 7.5 MG CAPSULE PO PRN (22:40)
[2018-10-04] MEDS: ATORVASTATIN 10 MG TABLET PO SCH (22:40)
[2018-10-04] MEDS: SENNOSIDES 8.6 MG TABLET PO SCH (22:40)
[2018-10-05 08:00] VITALS: BP 117/67
[2018-10-05 08:21] LABS: BASOPHILS # (AUTO) 0.2 /CMM (0.0-0.2); BASOPHILS % (AUTO) 1.9 % (0.0-2.0); HEMATOCRIT 40 % (39-51); HEMOGLOBIN 12.8 g/dL (13.5-17.5); LYMPHOCYTES # (AUTO) 1.2 /CMM (0.8-4.8); LYMPHOCYTES % (AUTO) 11.6 % (20.0-44.0); MEAN CORPUSCULAR HGB CONC 32 g/dl (31.0-36.0); MEAN CORPUSCULAR VOLUME 78 fL (80-96); MONOCYTES # (AUTO) 1.3 /CMM (0.1-1.30); MONOCYTES % (AUTO) 12.8 % (2.0-12.0); NEUTROPHILS # (AUTO) 7.5 /CMM (1.8-8.9); NEUTROPHILS % (AUTO) 72.7 % (43.0-81.0); PLATELET COUNT (AUTO) 140 /CMM (150-450); RED BLOOD CELL COUNT(AUTO) 5.17 MIL/uL (4.5-6.0); WHITE BLOOD COUNT (AUTO) 10.4 K/uL (4.3-11.0)
[2018-10-05] MEDS: MULTIVIT W/MINERALS 1 TAB TABLET PO SCH (08:30)
[2018-10-05] MEDS: CHOLECALCIFEROL 1,000 UNIT TABLET (VIT D3) PO SCH (08:30)
[2018-10-05] MEDS: DIGOXIN 0.125 MG TABLET PO SCH (08:30)
[2018-10-05] MEDS: METOPROLOL TARTRATE 25 MG TABLET PO SCH ×2 (08:31→16:44)
[2018-10-05] MEDS: APIXABAN 2.5 MG TABLET PO SCH ×2 (08:32→16:55)
[2018-10-05 08:33] LABS: ALANINE AMINOTRANSFERASE 27 U/L (12-78); ALBUMIN 3.4 g/dL (3.4-5.0); ALKALINE PHOSPHATASE 51 U/L (46-116); ASPARTATE AMINOTRANSFERASE 28 U/L (15-37); BILIRUBIN,TOTAL 1.2 mg/dL (0.2-1.0); CALCIUM, SERUM 8.8 mg/dL (8.5-10.1); CARBON DIOXIDE 27 mmol/L (21-32); CHLORIDE 104 mmol/L (98-107); CREATININE 1.3 mg/dL (0.6-1.3); GLUCOSE 118 mg/dL (74-106); POTASSIUM 3.5 mmol/L (3.5-5.1); SODIUM SERUM 142 mmol/L (136-145); TOTAL PROTEIN, SERUM 6.9 g/dL (6.4-8.2); UREA NITROGEN, BLOOD 32 mg/dL (7-18)
[2018-10-05] MEDS: POLYVINYL ALCOHOL 15 ML BOTTLE EACHEYE SCH ×3 (08:33→16:52)
[2018-10-05] MEDS: TIMOLOL 0.5% SOLN OPHTH 5 ML BOTTLE EACHEYE SCH ×2 (08:33→16:51)
[2018-10-05] MEDS: prednisoLONE ACET 1% OPHT DROP 5 ML BOTTLE RIGHTEYE SCH ×3 (08:33→16:51)
[2018-10-05] MEDS: DORZOLAMIDE OPTH 2% 10 ML BOTTLE EACHEYE SCH ×2 (08:33→16:52)
[2018-10-05 08:38] LABS: CHOLESTEROL 150 mg/dL (<200); HDL CHOLESTEROL 58 mg/dL (40-60); LDL 83 mg/dL (0-99); TRIGLYCERIDES 129 mg/dL (30-150)
[2018-10-05] MEDS: MORPHINE SULFATE SR 15 MG TABLET.SA PO SCH ×2 (08:43→22:46)
[2018-10-05] MEDS ORDERED: BRIMONIDINE TARTRATE OPHT SOLN 5 ML BOTTLE EACHEYE SCH (09:00)
[2018-10-05] MEDS ORDERED: Medication Not On Formulary EA (Omega-3 Fatty Acids/Fish Oil (Fish Oil 1,000 Mg Capsule) PO SCH (09:00)
[2018-10-05] MEDS ORDERED: LamoTRIgine 25 MG TABLET PO SCH (09:00)
[2018-10-05] MEDS ORDERED: predniSONE 10 MG TABLET PO SCH (09:00)
[2018-10-05] MEDS: predniSONE 20 MG TABLET PO SCH (09:15)
[2018-10-05] MEDS: BRIMONIDINE TARTRATE OPHT SOLN 5 ML BOTTLE EACHEYE SCH ×2 (10:47→16:51)
[2018-10-05] MEDS: PROSOURCE / PROSTAT (PYXIS) 30 ML UDC PO SCH (10:49)
[2018-10-05 16:00] VITALS: BP 140/88
[2018-10-05 20:00] VITALS: BP 122/68
[2018-10-05] MEDS: LamoTRIgine 25 MG TABLET PO SCH (22:45)
[2018-10-05] MEDS: LATANOPROST EYE DROP 0.005% 2.5 ML BOTTLE EACHEYE SCH (22:47)
[2018-10-05] MEDS: SENNOSIDES 8.6 MG TABLET PO SCH (22:47)
[2018-10-05] MEDS: ATORVASTATIN 10 MG TABLET PO SCH (22:47)
[2018-10-05] MEDS: QUETIAPINE FUMARATE 100 MG TABLET PO SCH (22:47)
[2018-10-06 08:00] VITALS: BP 155/79
[2018-10-06] MEDS: MULTIVIT W/MINERALS 1 TAB TABLET PO SCH (08:36)
[2018-10-06] MEDS: DULOXETINE HCL 30 MG CAPSULE.DR PO SCH (08:36)
[2018-10-06] MEDS: APIXABAN 2.5 MG TABLET PO SCH ×2 (08:36→16:24)
[2018-10-06] MEDS: CHOLECALCIFEROL 1,000 UNIT TABLET (VIT D3) PO SCH (08:36)
[2018-10-06] MEDS: MORPHINE SULFATE SR 15 MG TABLET.SA PO SCH ×2 (08:36→21:13)
[2018-10-06] MEDS: LamoTRIgine 25 MG TABLET PO SCH ×2 (08:38→21:12)
[2018-10-06] MEDS: DIGOXIN 0.125 MG TABLET PO SCH (08:38)
[2018-10-06] MEDS: METOPROLOL TARTRATE 25 MG TABLET PO SCH ×2 (08:38→16:24)
[2018-10-06] MEDS: POLYVINYL ALCOHOL 15 ML BOTTLE EACHEYE SCH ×3 (08:39→16:23)
[2018-10-06] MEDS: DORZOLAMIDE OPTH 2% 10 ML BOTTLE EACHEYE SCH ×2 (08:39→16:23)
[2018-10-06] MEDS: prednisoLONE ACET 1% OPHT DROP 5 ML BOTTLE RIGHTEYE SCH ×3 (08:39→16:23)
[2018-10-06] MEDS: BRIMONIDINE TARTRATE OPHT SOLN 5 ML BOTTLE EACHEYE SCH ×2 (08:40→16:23)
[2018-10-06] MEDS: TIMOLOL 0.5% SOLN OPHTH 5 ML BOTTLE EACHEYE SCH ×2 (08:40→16:23)
[2018-10-06] MEDS: predniSONE 20 MG TABLET PO SCH (08:43)
[2018-10-06] MEDS: PROSOURCE / PROSTAT (PYXIS) 30 ML UDC PO SCH (08:45)
[2018-10-06 16:00] VITALS: BP 107/53
[2018-10-06 20:08] VITALS: BP 106/63
[2018-10-06] MEDS: QUETIAPINE FUMARATE 100 MG TABLET PO SCH (21:12)
[2018-10-06] MEDS: ATORVASTATIN 10 MG TABLET PO SCH (21:13)
[2018-10-06] MEDS: SENNOSIDES 8.6 MG TABLET PO SCH (21:13)
[2018-10-06] MEDS: LATANOPROST EYE DROP 0.005% 2.5 ML BOTTLE EACHEYE SCH (21:14)
[2018-10-07 08:00] VITALS: BP 119/67
[2018-10-07] MEDS: POLYVINYL ALCOHOL 15 ML BOTTLE EACHEYE SCH ×3 (08:02→17:38)
[2018-10-07] MEDS: DORZOLAMIDE OPTH 2% 10 ML BOTTLE EACHEYE SCH ×2 (08:02→17:38)
[2018-10-07] MEDS: TIMOLOL 0.5% SOLN OPHTH 5 ML BOTTLE EACHEYE SCH ×2 (08:02→17:38)
[2018-10-07] MEDS: BRIMONIDINE TARTRATE OPHT SOLN 5 ML BOTTLE EACHEYE SCH ×2 (08:02→17:38)
[2018-10-07] MEDS: prednisoLONE ACET 1% OPHT DROP 5 ML BOTTLE RIGHTEYE SCH ×3 (08:02→17:38)
[2018-10-07] MEDS: APIXABAN 2.5 MG TABLET PO SCH ×2 (08:19→17:39)
[2018-10-07] MEDS: MULTIVIT W/MINERALS 1 TAB TABLET PO SCH (08:20)
[2018-10-07] MEDS: DIGOXIN 0.125 MG TABLET PO SCH (08:20)
[2018-10-07] MEDS: DULOXETINE HCL 30 MG CAPSULE.DR PO SCH (08:20)
[2018-10-07] MEDS: LamoTRIgine 25 MG TABLET PO SCH ×2 (08:20→21:17)
[2018-10-07] MEDS: predniSONE 20 MG TABLET PO SCH (08:20)
[2018-10-07] MEDS: METOPROLOL TARTRATE 25 MG TABLET PO SCH ×2 (08:21→17:39)
[2018-10-07] MEDS: MORPHINE SULFATE SR 15 MG TABLET.SA PO SCH ×2 (08:21→21:17)
[2018-10-07] MEDS: CHOLECALCIFEROL 1,000 UNIT TABLET (VIT D3) PO SCH (08:21)
[2018-10-07] MEDS: PROSOURCE / PROSTAT (PYXIS) 30 ML UDC PO SCH (09:45)
[2018-10-07 16:00] VITALS: BP 134/81
[2018-10-07 20:33] VITALS: BP 110/73
[2018-10-07] MEDS: SENNOSIDES 8.6 MG TABLET PO SCH (21:17)
[2018-10-07] MEDS: ATORVASTATIN 10 MG TABLET PO SCH (21:17)
[2018-10-07] MEDS: QUETIAPINE FUMARATE 100 MG TABLET PO SCH (21:25)
[2018-10-07] MEDS: LATANOPROST EYE DROP 0.005% 2.5 ML BOTTLE EACHEYE SCH (21:26)
[2018-10-08 08:00] VITALS: BP 122/67
[2018-10-08] MEDS: METOPROLOL TARTRATE 25 MG TABLET PO SCH ×2 (09:00→17:00)
[2018-10-08] MEDS: MORPHINE SULFATE SR 15 MG TABLET.SA PO SCH ×2 (09:36→21:12)
[2018-10-08] MEDS: LamoTRIgine 25 MG TABLET PO SCH ×2 (09:37→21:11)
[2018-10-08] MEDS: CHOLECALCIFEROL 1,000 UNIT TABLET (VIT D3) PO SCH (09:37)
[2018-10-08] MEDS: MULTIVIT W/MINERALS 1 TAB TABLET PO SCH (09:37)
[2018-10-08] MEDS: predniSONE 20 MG TABLET PO SCH (09:37)
[2018-10-08] MEDS: TIMOLOL 0.5% SOLN OPHTH 5 ML BOTTLE EACHEYE SCH ×2 (09:38→18:04)
[2018-10-08] MEDS: BRIMONIDINE TARTRATE OPHT SOLN 5 ML BOTTLE EACHEYE SCH ×2 (09:39→18:04)
[2018-10-08] MEDS: DORZOLAMIDE OPTH 2% 10 ML BOTTLE EACHEYE SCH ×2 (09:39→18:04)
[2018-10-08] MEDS: POLYVINYL ALCOHOL 15 ML BOTTLE EACHEYE SCH ×3 (09:40→18:02)
[2018-10-08] MEDS: prednisoLONE ACET 1% OPHT DROP 5 ML BOTTLE RIGHTEYE SCH ×3 (09:40→18:02)
[2018-10-08] MEDS: DIGOXIN 0.125 MG TABLET PO SCH (09:41)
[2018-10-08] MEDS: APIXABAN 2.5 MG TABLET PO SCH ×2 (09:48→18:01)
[2018-10-08] MEDS: PROSOURCE / PROSTAT (PYXIS) 30 ML UDC PO SCH (10:09)
[2018-10-08 16:00] VITALS: BP 144/99
[2018-10-08 20:14] VITALS: BP 129/73
[2018-10-08] MEDS: ATORVASTATIN 10 MG TABLET PO SCH (21:12)
[2018-10-08] MEDS: LATANOPROST EYE DROP 0.005% 2.5 ML BOTTLE EACHEYE SCH (21:12)
[2018-10-08] MEDS: SENNOSIDES 8.6 MG TABLET PO SCH (21:13)
[2018-10-08] MEDS: QUETIAPINE FUMARATE 100 MG TABLET PO SCH (21:13)
[2018-10-09 07:24] LABS: BASOPHILS # (AUTO) 0.1 /CMM (0.0-0.2); BASOPHILS % (AUTO) 0.8 % (0.0-2.0); EOSINOPHILS % (AUTO) 0.9 % (0.0-6.0); HEMATOCRIT 34 % (39-51); HEMOGLOBIN 10.7 g/dL (13.5-17.5); LYMPHOCYTES # (AUTO) 1.2 /CMM (0.8-4.8); LYMPHOCYTES % (AUTO) 14.1 % (20.0-44.0); MEAN CORPUSCULAR HGB CONC 32 g/dl (31.0-36.0); MEAN CORPUSCULAR VOLUME 78 fL (80-96); MONOCYTES % (AUTO) 12.4 % (2.0-12.0); NEUTROPHILS % (AUTO) 71.8 % (43.0-81.0); PLATELET COUNT (AUTO) 143 /CMM (150-450); RED BLOOD CELL COUNT(AUTO) 4.35 MIL/uL (4.5-6.0); WHITE BLOOD COUNT (AUTO) 8.4 K/uL (4.3-11.0)
[2018-10-09 07:27] LABS: CALCIUM, SERUM 8.8 mg/dL (8.5-10.1); CARBON DIOXIDE 29 mmol/L (21-32); CHLORIDE 107 mmol/L (98-107); CREATININE 1.4 mg/dL (0.6-1.3); GLUCOSE 106 mg/dL (74-106); MAGNESIUM 2.1 mg/dL (1.8-2.4); POTASSIUM 3.8 mmol/L (3.5-5.1); SODIUM SERUM 144 mmol/L (136-145); UREA NITROGEN, BLOOD 42 mg/dL (7-18)
[2018-10-09 08:00] VITALS: BP 129/70
[2018-10-09 09:07] LABS: NEUTROPHILS % (MANUAL) 78 (42-76)
[2018-10-09 09:08] LABS: EOSINOPHILS % (MANUAL) 2 % (0-4); LYMPHOCYTES % (MANUAL) 9 % (16-48); MONOCYTES % (MANUAL) 11 % (0-11.0)
[2018-10-09] MEDS: MORPHINE SULFATE SR 15 MG TABLET.SA PO SCH ×2 (09:12→20:53)
[2018-10-09] MEDS: PROSOURCE / PROSTAT (PYXIS) 30 ML UDC PO SCH (09:12)
[2018-10-09] MEDS: MULTIVIT W/MINERALS 1 TAB TABLET PO SCH (09:12)
[2018-10-09] MEDS: CHOLECALCIFEROL 1,000 UNIT TABLET (VIT D3) PO SCH (09:12)
[2018-10-09] MEDS: LamoTRIgine 25 MG TABLET PO SCH ×2 (09:13→20:52)
[2018-10-09] MEDS: DIGOXIN 0.125 MG TABLET PO SCH (09:13)
[2018-10-09] MEDS: METOPROLOL TARTRATE 25 MG TABLET PO SCH ×2 (09:13→16:17)
[2018-10-09] MEDS: APIXABAN 2.5 MG TABLET PO SCH ×2 (09:15→17:33)
[2018-10-09] MEDS: prednisoLONE ACET 1% OPHT DROP 5 ML BOTTLE RIGHTEYE SCH ×3 (09:19→17:31)
[2018-10-09] MEDS: POLYVINYL ALCOHOL 15 ML BOTTLE EACHEYE SCH ×3 (09:20→17:31)
[2018-10-09] MEDS: BRIMONIDINE TARTRATE OPHT SOLN 5 ML BOTTLE EACHEYE SCH ×2 (09:20→17:32)
[2018-10-09] MEDS: TIMOLOL 0.5% SOLN OPHTH 5 ML BOTTLE EACHEYE SCH ×2 (09:20→17:31)
[2018-10-09] MEDS: DORZOLAMIDE OPTH 2% 10 ML BOTTLE EACHEYE SCH ×2 (09:20→17:31)
[2018-10-09] MEDS: predniSONE 20 MG TABLET PO SCH (09:23)
[2018-10-09 16:00] VITALS: BP 155/97
[2018-10-09 17:39] VITALS: BP 142/88
[2018-10-09 20:00] VITALS: BP 116/75
[2018-10-09] MEDS: LATANOPROST EYE DROP 0.005% 2.5 ML BOTTLE EACHEYE SCH (21:39)
[2018-10-09] MEDS: ATORVASTATIN 10 MG TABLET PO SCH (21:39)
[2018-10-09] MEDS: SENNOSIDES 8.6 MG TABLET PO SCH (21:40)
[2018-10-09] MEDS: QUETIAPINE FUMARATE 100 MG TABLET PO SCH (21:40)
[2018-10-10] MEDS: TEMAZEPAM 7.5 MG CAPSULE PO PRN (00:28)
[2018-10-10 08:00] VITALS: BP 155/80
[2018-10-10] MEDS: predniSONE 20 MG TABLET PO SCH (08:06)
[2018-10-10] MEDS: CHOLECALCIFEROL 1,000 UNIT TABLET (VIT D3) PO SCH (08:06)
[2018-10-10] MEDS: DIGOXIN 0.125 MG TABLET PO SCH (08:06)
[2018-10-10] MEDS: POLYVINYL ALCOHOL 15 ML BOTTLE EACHEYE SCH ×3 (08:06→16:50)
[2018-10-10] MEDS: LamoTRIgine 25 MG TABLET PO SCH ×2 (08:07→21:45)
[2018-10-10] MEDS: MULTIVIT W/MINERALS 1 TAB TABLET PO SCH (08:07)
[2018-10-10] MEDS: MORPHINE SULFATE SR 15 MG TABLET.SA PO SCH ×2 (08:07→21:46)
[2018-10-10] MEDS: APIXABAN 2.5 MG TABLET PO SCH ×2 (08:08→16:52)
[2018-10-10] MEDS: METOPROLOL TARTRATE 25 MG TABLET PO SCH ×2 (08:08→16:50)
[2018-10-10] MEDS: PROSOURCE / PROSTAT (PYXIS) 30 ML UDC PO SCH (08:11)
[2018-10-10] MEDS: TIMOLOL 0.5% SOLN OPHTH 5 ML BOTTLE EACHEYE SCH ×2 (08:12→16:49)
[2018-10-10] MEDS: DORZOLAMIDE OPTH 2% 10 ML BOTTLE EACHEYE SCH ×2 (08:13→16:49)
[2018-10-10] MEDS: BRIMONIDINE TARTRATE OPHT SOLN 5 ML BOTTLE EACHEYE SCH ×2 (08:13→16:49)
[2018-10-10] MEDS: prednisoLONE ACET 1% OPHT DROP 5 ML BOTTLE RIGHTEYE SCH ×3 (08:14→16:49)
[2018-10-10 16:21] VITALS: BP 150/83
[2018-10-10 20:00] VITALS: BP 126/60
[2018-10-10] MEDS: ATORVASTATIN 10 MG TABLET PO SCH (21:45)
[2018-10-10] MEDS: QUETIAPINE FUMARATE 100 MG TABLET PO SCH (21:45)
[2018-10-10] MEDS: SENNOSIDES 8.6 MG TABLET PO SCH (21:45)
[2018-10-10] MEDS: LATANOPROST EYE DROP 0.005% 2.5 ML BOTTLE EACHEYE SCH (21:46)
[2018-10-11 06:58] LABS: BASOPHILS # (AUTO) 0.1 /CMM (0.0-0.2); BASOPHILS % (AUTO) 0.7 % (0.0-2.0); EOSINOPHILS % (AUTO) 0.6 % (0.0-6.0); HEMATOCRIT 36 % (39-51); HEMOGLOBIN 11.3 g/dL (13.5-17.5); LYMPHOCYTES % (AUTO) 9.2 % (20.0-44.0); MEAN CORPUSCULAR HGB CONC 31 g/dl (31.0-36.0); MEAN CORPUSCULAR VOLUME 79 fL (80-96); MONOCYTES # (AUTO) 0.9 /CMM (0.1-1.30); MONOCYTES % (AUTO) 8.9 % (2.0-12.0); NEUTROPHILS # (AUTO) 8.4 /CMM (1.8-8.9); NEUTROPHILS % (AUTO) 80.6 % (43.0-81.0); PLATELET COUNT (AUTO) 155 /CMM (150-450); RED BLOOD CELL COUNT(AUTO) 4.58 MIL/uL (4.5-6.0); WHITE BLOOD COUNT (AUTO) 10.4 K/uL (4.3-11.0)
[2018-10-11 07:24] LABS: CALCIUM, SERUM 8.8 mg/dL (8.5-10.1); CARBON DIOXIDE 26 mmol/L (21-32); CHLORIDE 107 mmol/L (98-107); CREATININE 1.4 mg/dL (0.6-1.3); GLUCOSE 91 mg/dL (74-106); MAGNESIUM 2.2 mg/dL (1.8-2.4); PHOSPHORUS 3.8 mg/dL (2.5-4.9); POTASSIUM 4.3 mmol/L (3.5-5.1); SODIUM SERUM 143 mmol/L (136-145); UREA NITROGEN, BLOOD 40 mg/dL (7-18)
[2018-10-11 08:00] VITALS: BP 157/96
[2018-10-11] MEDS: CHOLECALCIFEROL 1,000 UNIT TABLET (VIT D3) PO SCH (08:18)
[2018-10-11] MEDS: DIGOXIN 0.125 MG TABLET PO SCH (08:19)
[2018-10-11] MEDS: MULTIVIT W/MINERALS 1 TAB TABLET PO SCH (08:19)
[2018-10-11] MEDS: METOPROLOL TARTRATE 25 MG TABLET PO SCH ×2 (08:19→17:42)
[2018-10-11] MEDS: predniSONE 20 MG TABLET PO SCH (08:20)
[2018-10-11] MEDS: MORPHINE SULFATE SR 15 MG TABLET.SA PO SCH ×2 (08:49→21:46)
[2018-10-11] MEDS: LamoTRIgine 25 MG TABLET PO SCH ×2 (08:49→21:44)
[2018-10-11] MEDS: APIXABAN 2.5 MG TABLET PO SCH ×2 (08:51→17:00)
[2018-10-11] MEDS: PROSOURCE / PROSTAT (PYXIS) 30 ML UDC PO SCH (09:13)
[2018-10-11] MEDS: DORZOLAMIDE OPTH 2% 10 ML BOTTLE EACHEYE SCH ×2 (09:13→17:43)
[2018-10-11] MEDS: prednisoLONE ACET 1% OPHT DROP 5 ML BOTTLE RIGHTEYE SCH ×3 (09:13→17:43)
[2018-10-11] MEDS: TIMOLOL 0.5% SOLN OPHTH 5 ML BOTTLE EACHEYE SCH ×2 (09:13→17:43)
[2018-10-11] MEDS: BRIMONIDINE TARTRATE OPHT SOLN 5 ML BOTTLE EACHEYE SCH ×2 (09:13→17:43)
[2018-10-11] MEDS: POLYVINYL ALCOHOL 15 ML BOTTLE EACHEYE SCH ×3 (09:13→17:44)
[2018-10-11 16:00] VITALS: BP 125/67
[2018-10-11 20:00] VITALS: BP 123/65
[2018-10-11] MEDS: QUETIAPINE FUMARATE 100 MG TABLET PO SCH (21:43)
[2018-10-11] MEDS: ATORVASTATIN 10 MG TABLET PO SCH (21:43)
[2018-10-11] MEDS: SENNOSIDES 8.6 MG TABLET PO SCH (21:44)
[2018-10-11] MEDS: LATANOPROST EYE DROP 0.005% 2.5 ML BOTTLE EACHEYE SCH (21:44)
[2018-10-12 07:13] LABS: ABG BASE EXCESS -1.2 mmol/L; ABG OXYGEN SATURATION 81.5 % (92.0-98.5); ABG PCO2 40.8 mmHg (35.0-45.0); ABG PH 7.384 (7.350-7.450); ABG PO2 47.5 mmHg (75.0-100.0); AaDO2 53.4 mmHg; MetHb 0.7 % (0.0-1.5); O2Hb 80.1 % (94.0-97.0); SITE, ABG Right Radial; VENT MODE, BG RA
[2018-10-12] MEDS ORDERED: METOLAZONE 2.5 MG TABLET PO ONE (07:30)
[2018-10-12] MEDS ORDERED: BUMETANIDE (1 MG) 1 MG TABLET PO ONE (07:30)
[2018-10-12 08:00] VITALS: BP 161/87
[2018-10-12] MEDS: METOPROLOL TARTRATE 25 MG TABLET PO SCH ×2 (09:11→17:41)
[2018-10-12] MEDS: predniSONE 20 MG TABLET PO SCH (09:11)
[2018-10-12] MEDS: MORPHINE SULFATE SR 15 MG TABLET.SA PO SCH ×2 (09:11→21:00)
[2018-10-12] MEDS: DIGOXIN 0.125 MG TABLET PO SCH (09:11)
[2018-10-12] MEDS: LamoTRIgine 25 MG TABLET PO SCH ×3 (09:12→22:15)
[2018-10-12] MEDS: MULTIVIT W/MINERALS 1 TAB TABLET PO SCH (09:12)
[2018-10-12] MEDS: CHOLECALCIFEROL 1,000 UNIT TABLET (VIT D3) PO SCH (09:12)
[2018-10-12] MEDS: APIXABAN 2.5 MG TABLET PO SCH ×2 (09:19→17:42)
[2018-10-12] MEDS: TIMOLOL 0.5% SOLN OPHTH 5 ML BOTTLE EACHEYE SCH ×2 (09:59→17:40)
[2018-10-12] MEDS: POLYVINYL ALCOHOL 15 ML BOTTLE EACHEYE SCH ×3 (09:59→17:39)
[2018-10-12] MEDS: DORZOLAMIDE OPTH 2% 10 ML BOTTLE EACHEYE SCH ×2 (09:59→17:40)
[2018-10-12] MEDS: BRIMONIDINE TARTRATE OPHT SOLN 5 ML BOTTLE EACHEYE SCH ×2 (10:00→17:40)
[2018-10-12] MEDS: prednisoLONE ACET 1% OPHT DROP 5 ML BOTTLE RIGHTEYE SCH ×3 (10:01→17:40)
[2018-10-12] MEDS: PROSOURCE / PROSTAT (PYXIS) 30 ML UDC PO SCH (10:02)
[2018-10-12 16:00] VITALS: BP 126/82
[2018-10-12 20:57] VITALS: BP 112/63
[2018-10-12] MEDS: ATORVASTATIN 10 MG TABLET PO SCH ×2 (21:46→22:15)
[2018-10-12] MEDS: QUETIAPINE FUMARATE 100 MG TABLET PO SCH ×2 (21:48→22:15)
[2018-10-12] MEDS: SENNOSIDES 8.6 MG TABLET PO SCH ×2 (21:51→22:15)
[2018-10-12] MEDS: LATANOPROST EYE DROP 0.005% 2.5 ML BOTTLE EACHEYE SCH (22:45)
[2018-10-13 07:43] LABS: BASOPHILS # (AUTO) 0.1 /CMM (0.0-0.2); BASOPHILS % (AUTO) 0.7 % (0.0-2.0); EOSINOPHILS % (AUTO) 1.3 % (0.0-6.0); HEMATOCRIT 35 % (39-51); HEMOGLOBIN 10.9 g/dL (13.5-17.5); LYMPHOCYTES # (AUTO) 0.8 /CMM (0.8-4.8); LYMPHOCYTES % (AUTO) 10.6 % (20.0-44.0); MEAN CORPUSCULAR HGB CONC 31 g/dl (31.0-36.0); MEAN CORPUSCULAR VOLUME 78 fL (80-96); MONOCYTES # (AUTO) 0.8 /CMM (0.1-1.30); MONOCYTES % (AUTO) 10.7 % (2.0-12.0); NEUTROPHILS # (AUTO) 5.7 /CMM (1.8-8.9); NEUTROPHILS % (AUTO) 76.7 % (43.0-81.0); PLATELET COUNT (AUTO) 149 /CMM (150-450); RED BLOOD CELL COUNT(AUTO) 4.49 MIL/uL (4.5-6.0); WHITE BLOOD COUNT (AUTO) 7.5 K/uL (4.3-11.0)
[2018-10-13 08:00] VITALS: BP 105/69
[2018-10-13 08:11] LABS: BAND % (MANUAL) 1 % (0.0-5.0); CALCIUM, SERUM 8.6 mg/dL (8.5-10.1); CARBON DIOXIDE 32 mmol/L (21-32); CHLORIDE 104 mmol/L (98-107); CREATININE 1.7 mg/dL (0.6-1.3); EOSINOPHILS % (MANUAL) 3 % (0-4); GLUCOSE 102 mg/dL (74-106); LYMPHOCYTES % (MANUAL) 12 % (16-48); MAGNESIUM 2.1 mg/dL (1.8-2.4); MONOCYTES % (MANUAL) 13 % (0-11.0); MYELOCYTES % 3 % (0-0); NEUTROPHILS % (MANUAL) 68 (42-76); PHOSPHORUS 4.3 mg/dL (2.5-4.9); POTASSIUM 3.7 mmol/L (3.5-5.1); SODIUM SERUM 143 mmol/L (136-145); UREA NITROGEN, BLOOD 43 mg/dL (7-18)
[2018-10-13] MEDS: METOPROLOL TARTRATE 25 MG TABLET PO SCH ×2 (08:39→17:52)
[2018-10-13] MEDS: predniSONE 20 MG TABLET PO SCH (08:41)
[2018-10-13] MEDS: MULTIVIT W/MINERALS 1 TAB TABLET PO SCH (08:41)
[2018-10-13] MEDS: MORPHINE SULFATE SR 15 MG TABLET.SA PO SCH ×2 (08:41→22:05)
[2018-10-13] MEDS: CHOLECALCIFEROL 1,000 UNIT TABLET (VIT D3) PO SCH (08:42)
[2018-10-13] MEDS: PROSOURCE / PROSTAT (PYXIS) 30 ML UDC PO SCH (08:42)
[2018-10-13] MEDS: FUROSEMIDE 40 MG TABLET PO SCH (08:42)
[2018-10-13] MEDS: POLYVINYL ALCOHOL 15 ML BOTTLE EACHEYE SCH ×3 (08:45→17:48)
[2018-10-13] MEDS: TIMOLOL 0.5% SOLN OPHTH 5 ML BOTTLE EACHEYE SCH ×2 (08:47→17:49)
[2018-10-13] MEDS: BRIMONIDINE TARTRATE OPHT SOLN 5 ML BOTTLE EACHEYE SCH ×2 (08:47→17:49)
[2018-10-13] MEDS: prednisoLONE ACET 1% OPHT DROP 5 ML BOTTLE RIGHTEYE SCH ×3 (08:48→17:49)
[2018-10-13] MEDS: DORZOLAMIDE OPTH 2% 10 ML BOTTLE EACHEYE SCH ×2 (08:48→17:49)
[2018-10-13] MEDS: APIXABAN 2.5 MG TABLET PO SCH ×2 (08:56→17:50)
[2018-10-13] MEDS ORDERED: IV NS 0.9% 1,000 ML IV ONE (10:00)
[2018-10-13 12:39] LABS: ABG BASE EXCESS 4.1 mmol/L; ABG PCO2 46.7 mmHg (35.0-45.0); ABG PH 7.416 (7.350-7.450); ABG PO2 100.4 mmHg (75.0-100.0); AaDO2 44.1 mmHg; MetHb 0.8 % (0.0-1.5); O2Hb 95.3 % (94.0-97.0); SITE, ABG Right Radial; VENT MODE, BG 2L NC
[2018-10-13] MEDS: DIGOXIN 0.125 MG TABLET PO SCH (13:00)
[2018-10-13 16:00] VITALS: BP 115/73
[2018-10-13 19:46] VITALS: BP 97/56
[2018-10-13 21:30] VITALS: BP 134/76
[2018-10-13] MEDS: SENNOSIDES 8.6 MG TABLET PO SCH (21:33)
[2018-10-13] MEDS: ATORVASTATIN 10 MG TABLET PO SCH (21:33)
[2018-10-13] MEDS: LamoTRIgine 25 MG TABLET PO SCH (21:33)
[2018-10-13] MEDS: QUETIAPINE FUMARATE 100 MG TABLET PO SCH (21:34)
[2018-10-13] MEDS: LATANOPROST EYE DROP 0.005% 2.5 ML BOTTLE EACHEYE SCH (21:35)
[2018-10-14 06:32] LABS: CALCIUM, SERUM 8.5 mg/dL (8.5-10.1); CARBON DIOXIDE 30 mmol/L (21-32); CHLORIDE 104 mmol/L (98-107); CREATININE 1.6 mg/dL (0.6-1.3); GLUCOSE 94 mg/dL (74-106); POTASSIUM 3.7 mmol/L (3.5-5.1); SODIUM SERUM 143 mmol/L (136-145); UREA NITROGEN, BLOOD 48 mg/dL (7-18)
[2018-10-14 08:00] VITALS: BP 152/79
[2018-10-14] MEDS: TIMOLOL 0.5% SOLN OPHTH 5 ML BOTTLE EACHEYE SCH ×2 (09:25→16:41)
[2018-10-14] MEDS: POLYVINYL ALCOHOL 15 ML BOTTLE EACHEYE SCH ×3 (09:25→16:41)
[2018-10-14] MEDS: DORZOLAMIDE OPTH 2% 10 ML BOTTLE EACHEYE SCH ×2 (09:25→16:41)
[2018-10-14] MEDS: LamoTRIgine 25 MG TABLET PO SCH ×2 (09:26→21:30)
[2018-10-14] MEDS: BRIMONIDINE TARTRATE OPHT SOLN 5 ML BOTTLE EACHEYE SCH ×2 (09:26→16:42)
[2018-10-14] MEDS: prednisoLONE ACET 1% OPHT DROP 5 ML BOTTLE RIGHTEYE SCH ×3 (09:26→16:42)
[2018-10-14] MEDS: METOPROLOL TARTRATE 25 MG TABLET PO SCH ×2 (09:26→16:42)
[2018-10-14] MEDS: FUROSEMIDE 40 MG TABLET PO SCH (09:27)
[2018-10-14] MEDS: predniSONE 20 MG TABLET PO SCH (09:27)
[2018-10-14] MEDS: MULTIVIT W/MINERALS 1 TAB TABLET PO SCH (09:27)
[2018-10-14] MEDS: CHOLECALCIFEROL 1,000 UNIT TABLET (VIT D3) PO SCH (09:27)
[2018-10-14] MEDS: PROSOURCE / PROSTAT (PYXIS) 30 ML UDC PO SCH (09:28)
[2018-10-14] MEDS: MORPHINE SULFATE SR 15 MG TABLET.SA PO SCH ×2 (09:28→21:32)
[2018-10-14] MEDS: APIXABAN 2.5 MG TABLET PO SCH ×2 (09:38→16:49)
[2018-10-14] MEDS: DIGOXIN 0.125 MG TABLET PO SCH (12:46)
[2018-10-14 17:18] VITALS: BP 116/65
[2018-10-14 20:28] VITALS: BP 126/56
[2018-10-14] MEDS: SENNOSIDES 8.6 MG TABLET PO SCH (21:30)
[2018-10-14] MEDS: ATORVASTATIN 10 MG TABLET PO SCH (21:30)
[2018-10-14] MEDS: QUETIAPINE FUMARATE 100 MG TABLET PO SCH (21:30)
[2018-10-14] MEDS: LATANOPROST EYE DROP 0.005% 2.5 ML BOTTLE EACHEYE SCH (21:31)
[2018-10-15 08:00] VITALS: BP 117/62
[2018-10-15] MEDS: CHOLECALCIFEROL 1,000 UNIT TABLET (VIT D3) PO SCH (09:23)
[2018-10-15] MEDS: predniSONE 20 MG TABLET PO SCH (09:23)
[2018-10-15] MEDS: LamoTRIgine 25 MG TABLET PO SCH ×2 (09:23→22:06)
[2018-10-15] MEDS: FUROSEMIDE 40 MG TABLET PO SCH (09:24)
[2018-10-15] MEDS: METOPROLOL TARTRATE 25 MG TABLET PO SCH ×2 (09:24→16:50)
[2018-10-15] MEDS: MORPHINE SULFATE SR 15 MG TABLET.SA PO SCH ×2 (09:24→22:05)
[2018-10-15] MEDS: prednisoLONE ACET 1% OPHT DROP 5 ML BOTTLE RIGHTEYE SCH ×3 (09:25→16:49)
[2018-10-15] MEDS: DORZOLAMIDE OPTH 2% 10 ML BOTTLE EACHEYE SCH ×2 (09:25→16:48)
[2018-10-15] MEDS: POLYVINYL ALCOHOL 15 ML BOTTLE EACHEYE SCH ×3 (09:26→16:48)
[2018-10-15] MEDS: BRIMONIDINE TARTRATE OPHT SOLN 5 ML BOTTLE EACHEYE SCH ×2 (09:26→16:49)
[2018-10-15] MEDS: TIMOLOL 0.5% SOLN OPHTH 5 ML BOTTLE EACHEYE SCH ×2 (09:27→16:49)
[2018-10-15] MEDS: PROSOURCE / PROSTAT (PYXIS) 30 ML UDC PO SCH (09:27)
[2018-10-15] MEDS: MULTIVIT W/MINERALS 1 TAB TABLET PO SCH (09:27)
[2018-10-15] MEDS: APIXABAN 2.5 MG TABLET PO SCH ×2 (09:28→16:51)
[2018-10-15] MEDS: DIGOXIN 0.125 MG TABLET PO SCH (13:06)
[2018-10-15 16:00] VITALS: BP 124/78
[2018-10-15 20:06] VITALS: BP 119/72
[2018-10-15] MEDS: SENNOSIDES 8.6 MG TABLET PO SCH (22:05)
[2018-10-15] MEDS: QUETIAPINE FUMARATE 100 MG TABLET PO SCH (22:05)
[2018-10-15] MEDS: ATORVASTATIN 10 MG TABLET PO SCH (22:06)
[2018-10-15] MEDS: LATANOPROST EYE DROP 0.005% 2.5 ML BOTTLE EACHEYE SCH (22:07)
== END 2018-10-15 22:21 | disposition short-term general hospital (02) | DRG 885 ==
LOC: ER 16:42 → GPS 18:53
PROVIDERS: ADMIT Psychiatry & Neurology Psychiatry; ATTEND Nurse Practitioner Acute Care
DX: F31.64 Bipolar disorder, current episode mixed, severe, with psychotic features (principal); N17.0 Acute kidney failure with tubular necrosis; N18.9 Chronic kidney disease, unspecified; I50.32 Chronic diastolic (congestive) heart failure; I13.0 Hypertensive heart and chronic kidney disease with heart failure and stage 1 through stage 4 chronic kidney disease, or unspecified chronic kidney disease; D68.59 Other primary thrombophilia; F23 Brief psychotic disorder; I48.91 Unspecified atrial fibrillation; Z79.01 Long term (current) use of anticoagulants; I25.10 Atherosclerotic heart disease of native coronary artery without angina pectoris; N40.0 Benign prostatic hyperplasia without lower urinary tract symptoms; F03.90 Unspecified dementia, unspecified severity, without behavioral disturbance, psychotic disturbance, mood disturbance, and anxiety; F41.9 Anxiety disorder, unspecified; E78.5 Hyperlipidemia, unspecified; I70.201 Unspecified atherosclerosis of native arteries of extremities, right leg; D63.1 Anemia in chronic kidney disease; R09.02 Hypoxemia; K21.9 Gastro-esophageal reflux disease without esophagitis; Z95.1 Presence of aortocoronary bypass graft
CPT/HCPCS: 36415; 36600; 71045-TC; 80048-TC; 80053-TC; 80061-TC; 80076-TC; 82803-TC; 83735-TC; 84100-TC; 85025-TC; 87081-TC; 93971-TC; 94799-TC; G0480; J7030

== ENCOUNTER 2018-10-15 23:05 | Inpatient (IN) | payer MEDICARE ==
[~2018-10-15] VITALS: Ht 185.4 cm; Wt 80.7 kg
[2018-10-15 22:30] VITALS: BP 119/69
[~2018-10-15 23:05] MED LIST changes: -FURO40TA5 PO; +METO25TA20 PO; -METO50TA16 PO; -MIRT15TA7 PO; +OLAN2.5T3 PO; -QUET25TA PO
[2018-10-16] VITALS: BP 119/69
[2018-10-16] MEDS ORDERED: HEPARIN INFUSION/D5W 500 ML IV PRN (01:30)
[2018-10-16] MEDS ORDERED: HEPARIN SODIUM, PORCINE 5000 UNITS/1 ML VIAL IV ONE (01:30)
[2018-10-16] MEDS ORDERED: HEPARIN INFUSION/D5W 500 ML IV ONE (01:33)
[2018-10-16 04:00] VITALS: BP 122/74
[2018-10-16 08:00] VITALS: BP 131/80
[2018-10-16] MEDS ORDERED: MAG HYDROX/AL HYDROX/SIMETH 30 ML UDC PO PRN (08:30)
[2018-10-16] MEDS ORDERED: ACETAMINOPHEN 325 MG TABLET PO PRN (08:30)
[2018-10-16] MEDS ORDERED: HYDROCODONE/APAP 10/325MG 1 EA TABLET PO PRN (08:30)
[2018-10-16] MEDS ORDERED: predniSONE 10 MG TABLET PO SCH (09:00)
[2018-10-16] MEDS ORDERED: MULTIVIT W/MINERALS 1 TAB TABLET PO SCH (09:00)
[2018-10-16] MEDS ORDERED: DULOXETINE HCL 20 MG CAPSULE.DR PO SCH (09:00)
[2018-10-16] MEDS ORDERED: LamoTRIgine 100 MG TABLET PO SCH (09:00)
[2018-10-16] MEDS ORDERED: PROSTAT (PYXIS) 30 ML UDC PO SCH (09:00)
[2018-10-16] MEDS ORDERED: APIXABAN 2.5 MG TABLET PO SCH (09:00)
[2018-10-16] MEDS ORDERED: DIGOXIN 0.125 MG TABLET PO SCH ×2 (09:00→10:30)
[2018-10-16] MEDS ORDERED: Medication Not On Formulary EA (Omega-3 Fatty Acids/Fish Oil (Fish Oil 1,000 Mg Capsule) PO SCH (09:00)
[2018-10-16] MEDS ORDERED: BRIMONIDINE TARTRATE OPHT SOLN 5 ML BOTTLE EACHEYE SCH (09:00)
[2018-10-16] MEDS ORDERED: MORPHINE SULFATE SR 15 MG TABLET.SA PO SCH (09:00)
[2018-10-16] MEDS ORDERED: CHOLECALCIFEROL 1,000 UNIT TABLET (VIT D3) PO SCH (09:00)
[2018-10-16] MEDS ORDERED: DORZOLAMIDE OPTH 2% 10 ML BOTTLE EACHEYE SCH (09:00)
[2018-10-16] MEDS ORDERED: METOPROLOL TARTRATE 25 MG TABLET PO SCH (09:00)
[2018-10-16] MEDS ORDERED: TIMOLOL 0.5% SOLN OPHTH 5 ML BOTTLE EACHEYE SCH (09:30)
[2018-10-16] MEDS: POLYVINYL ALCOHOL 15 ML BOTTLE EACHEYE SCH ×2 (09:41→12:28)
[2018-10-16] MEDS: prednisoLONE ACET 1% OPHT DROP 5 ML BOTTLE RIGHTEYE SCH ×2 (09:42→12:31)
[2018-10-16 12:00] VITALS: BP 131/78
[2018-10-16 12:41] VITALS: BP 131/78
[2018-10-16] MEDS ORDERED: OLANZAPINE 2.5 MG TABLET PO SCH (13:00)
[2018-10-16] MEDS ORDERED: Medication Not On Formulary EA (Melatonin 3 MG) PO SCH (22:00)
[2018-10-16] MEDS ORDERED: ATORVASTATIN 10 MG TABLET PO SCH (22:00)
[2018-10-16] MEDS ORDERED: LATANOPROST EYE DROP 0.005% 2.5 ML BOTTLE OP SCH (22:00)
[2018-10-16] MEDS ORDERED: SENNOSIDES 8.6 MG TABLET PO SCH (22:00)
== END 2018-10-16 15:49 | DRG 300 ==
LOC: TELE1 23:05 → TELE-TD 10-16 00:21
DX: I77.1 Stricture of artery (principal); G93.40 Encephalopathy, unspecified; I13.0 Hypertensive heart and chronic kidney disease with heart failure and stage 1 through stage 4 chronic kidney disease, or unspecified chronic kidney disease; I50.32 Chronic diastolic (congestive) heart failure; E66.9 Obesity, unspecified; E78.5 Hyperlipidemia, unspecified; F03.90 Unspecified dementia, unspecified severity, without behavioral disturbance, psychotic disturbance, mood disturbance, and anxiety; F20.9 Schizophrenia, unspecified; F31.9 Bipolar disorder, unspecified; F41.9 Anxiety disorder, unspecified; G89.29 Other chronic pain; I25.10 Atherosclerotic heart disease of native coronary artery without angina pectoris; I48.91 Unspecified atrial fibrillation; K21.9 Gastro-esophageal reflux disease without esophagitis; N18.9 Chronic kidney disease, unspecified; N40.0 Benign prostatic hyperplasia without lower urinary tract symptoms; Z79.01 Long term (current) use of anticoagulants; Z95.1 Presence of aortocoronary bypass graft; I77.89 Other specified disorders of arteries and arterioles; Z68.23 Body mass index [BMI] 23.0-23.9, adult; D63.1 Anemia in chronic kidney disease
CPT/HCPCS: 36415; 80162-TC; 85730-TC; 87081-TC; 97530-TC; G0378; J1644